=== PATIENT | male | born 1940 | race Caucasian/White ===

== ENCOUNTER → 2018-01-22 15:14 | Outpatient (CLI) | payer OTHER, SELFPAY ==
[2018-01-22 15:41] LABS: Add Manual Diff / Slide Review NO; Basophils Percent Auto 0.8 % (0-2); Eosinophils Percent Auto 2.3 % (2-4); Hematocrit 40.5 % (41-53); Hemoglobin 14.4 g/dL (13.5-17.5); Lymphocytes Percent Auto 16.8 % (25-40); Mean Corpuscular HGB Conc 35.6 % (30-36); Mean Corpuscular Hemoglobin 33.5 PG (26-34); Mean Corpuscular Volume 94.2 fL (80-100); Monocytes Percent Auto 9.3 % (3-14); Neutrophils Absolute Auto 4700 /uL (3000-5900); Neutrophils Percent Auto 70.8 % (50-75); Platelet Count 118 X10^3/uL (150-400); Red Blood Cell Count 4.31 X10^6/uL (4.5-5.9); Red Cell Distribution Width 14.3 % (11.6-14.8); White Blood Cell Count 6.6 X10^3/uL (4.5-11.0)
[2018-01-22 16:02] LABS: Alanine Aminotransferase 34 IU/L (21-72); Albumin 3.9 g/dL (3.5-5.0); Albumin Globulin Ratio 1.6 (1.0-2.8); Alkaline Phosphatase 98 U/L (38-126); Aspartate Aminotransferase 23 IU/L (17-59); BUN Creatinine Ratio 22.2 (6-22); Bilirubin Total 0.7 mg/dL (0.2-1.3); Blood Urea Nitrogen 20 mg/dL (9-20); Calcium 8.8 mg/dL (8.4-10.2); Carbon Dioxide 29 mmol/L (22-32); Chloride 106 mmol/L (98-107); Cholesterol 209 mg/dL (140-199); Estimated Glomerular Filt Rate > 60.0 mL/min (>60); Globulin 2.5 g/dL (1.7-4.1); Glucose 87 mg/dL (80-110); HDL Cholesterol 40 mg/dL (40-60); HEMOLYSIS < 15 (0-50); LDL Cholesterol Calculated 146 mg/dL (<100); Sodium 141 mmol/L (137-145); Total Protein 6.4 g/dL (6.3-8.2); Triglycerides 115 mg/dL (35-150)
[2018-01-22 16:30] LABS: Prostate Specific Antigen Scrn 0.631 ng/mL (0.1-4.0)
[2018-01-22 17:27] LABS: TSH w/ Reflex to FT4 0.91 uIU/mL (0.47-4.68)
== END ==
PROVIDERS: Family Provider Family Medicine; PCP Family Medicine; Visit Provider Family Medicine
DX: E78.5 Hyperlipidemia, unspecified (principal); G25.81 Restless legs syndrome
CPT/HCPCS: 36415; 80053; 80061; 84443; 85025; G0103

== ENCOUNTER → 2018-06-04 10:52 | Outpatient (CLI) | payer OTHER, SELFPAY ==
--- NOTE | 2018-06-04 10:53 | DI.RAD.S_ITS ---
PROCEDURE: XR LUMBAR SPINE MIN 4V INDICATIONS: left leg ridculpathy TECHNIQUE: 5 views of the lumbar spine were acquired. COMPARISON: None. FINDINGS: Bones: 5 nonrib-bearing vertebrae are present. There is normal bony alignment. No vertebral body compression fractures. No suspicious bony lesions. Only a mild degree of degenerative disc at reduction and facet degeneration can be seen. No appreciable spinal or foraminal stenosis is found. Soft tissues: Overlying bowel gas pattern is normal. No suspicious soft tissue calcifications. Oblique images: No pars defects. IMPRESSION: Minimal degenerative disc disease and facet osteoarthritis bilaterally, and a source of current symptoms is not seen. MR scanning may be warranted given its ability to accurately detect spinal and foraminal stenosis including disc herniation not identifiable by plain film. Dictated by: Baljeet Mars M.D. on 06/04/2018 at 11:37 Approved by: Baljeet Mars M.D. on 06/04/2018 at 11:38
== END ==
PROVIDERS: PCP Family Medicine; Visit Provider Family Medicine
DX: M54.42 Lumbago with sciatica, left side (principal); M54.41 Lumbago with sciatica, right side
CPT/HCPCS: 72110

== ENCOUNTER 2018-08-09 08:15 | Outpatient (RCR) | payer OTHER, SELFPAY ==
--- NOTE | 2018-07-03 17:32 | PT.OIE ---
Current Diagnoses Radiculopathy, lumbar region (07/03/18) Dorsalgia, unspecified (07/03/18) Past Medical History (Last Reviewed 06/04/18 @ 10:19 by Ruby Branch LPN) Anxiety (Chronic) Eczema (Chronic) Erectile dysfunction (Chronic) GERD (gastroesophageal reflux disease) (Chronic) Glaucoma (Chronic) Hearing loss (Chronic) Hyperlipidemia (Chronic) Psoriasis (Chronic) Tinnitus (Chronic) Vision disorder (Chronic) Past Surgical History (Last Reviewed 06/04/18 @ 10:19 by Ruby Branch LPN) Anesthesia (Resolved) History of temporal artery biopsy (Resolved) History of cataract removal with insertion of prosthetic lens (~11/2014) Provider Visit Care Team Role Provider Type Gabriel Vu MD Attending Provider Physician Family Provider Primary Care Provider Specialty: Family Practice Address: [address] [place] [address] Email: [email or web address] Physical Therapy Initial Evaluation PT-OP-A Visit Information Start: 07/03/18 16:49 Freq: Status: Active Protocol: Document 07/03/18 13:45 HH (Rec: 07/03/18 17:31 [email or web address]) Out-Patient Physical Therapy Visit Information Visit Information Visit Type Initial Evaluation Visit Note Pt is a 77 year old pleasant male with chronic LBP and radiating pain to L LE. Visit Start Time 13:45 Visit Stop Time 14:30 Total Visit Minutes 45 Visit Number 1 Number of [employer] Visits 0 Evaluation Information Evaluation Date 07/03/18 PT-OP-B Current Condition Start: 07/03/18 16:49 Freq: Status: Active Protocol: Document 07/03/18 13:45 HH (Rec: 07/03/18 17:31 [email or web address]) Current Condition History of Current Condition Onset Date Years ago Current Complaints LBP with radiating pain to L LE History of Current Condition Pt reports he has chronic LBP since many years ago and he does not knoe why. His pain radiates to his back of his L LE. Symptoms worst in the morning before he gets up from bed, but it gets better during the day. It also gets worse during prolonged sitting (especially sitting on L side ) and lying down, but relieved withing standing and movements. He also c/o his gait has been getting more uncomfortable. Prior Treatments and Tests n/a Treatment Goals Patient/Caregiver Goals To be pain free for prolonged sitting and lying down. To strengthen his B LE muscles Prior Functional Status Baseline Function- ADL's Independent Baseline Function- Mobility Independent Current Functional Impairments (Reported) Functional Limitations- ADL's No limitations reported Functional Limitations- Mobility/Gait No limitations reported Functional Limitations- Work/School No limitations reported Functional Limitations- Recreation/ No limitations reported Hobbies Functional Limitations- Other No limitations reported Personal Factors Other Personal Factors That May Effect depression, sleep apnea, Therapy/Recovery restless leg syndrome PT-OP-C Subjective Start: 07/03/18 16:49 Freq: Status: Active Protocol: Document 07/03/18 13:45 HH (Rec: 07/03/18 17:31 [email or web address]) OP-PT Subjective Patient Comments Patient Comments My LBP has been going for years and my symptoms come in and go. I want to come for physical therapy to address my symptoms and hopefully i could get better without pain again. Patient Questionnaires Oswestry Low Back Index Oswestry Score 7 Oswestry Impairment 1 to 19% Impaired (Score 1-19) OP-PT Pain Assessment Location Lower Back Pain Location Details L4-L5 Intensity 3 Scale Used Numeric (1 - 10) Description Dull Frequency Intermittent Pain Aggravating Factors Sitting Pain Alleviating Factors Standing Exercise Left Lower Leg Intensity 3 Scale Used Numeric (1 - 10) Description Dull Frequency Intermittent Pain Aggravating Factors Position Sitting Prolonged Bedrest Pain Alleviating Factors Standing Exercise PT-OP-F Manual Assessment Start: 07/03/18 16:49 Freq: Status: Active Protocol: Document 07/03/18 13:45 HH (Rec: 07/03/18 17:31 [email or web address]) Manual Assessments Soft Tissue Assessment Soft Tissue Mobility Assessment Tenderness at SI joint region, lumbar paraspinals significant tightness at L hip adductors and hamstrings Joint Mobility Assessment Joint Mobility Assessment mild hypomobility at Lumbo- sacral region PT-OP-G Mobility & Gait Start: 07/03/18 16:49 Freq: Status: Active Protocol: Document 07/03/18 13:45 HH (Rec: 07/03/18 17:31 [email or web address]) OP Gait Assessment Gait Deviations General Gait Pattern Antalgic Comments Gait Comments pt presents mild R hip drop during L LE stance phase and excessive lateral weight shift (waddling gait) PT-OP-K Range of Motion Start: 07/03/18 16:49 Freq: Status: Active Protocol: Document 07/03/18 13:45 HH (Rec: 07/03/18 17:31 [email or web address]) Lumbar Spine Range of Motion Lumbar Spine Percentage Testing Position Standing Flexion 50 Extension 80 Rotation Left 80 Rotation Right 80 ROM Limitations Soft Tissue Tightness Comments pt has significant L hip adductors and hamstrings tightness PT-OP-L Special Tests Start: 07/03/18 16:49 Freq: Status: Active Protocol: Document 07/03/18 13:45 HH (Rec: 07/03/18 17:31 [email or web address]) Special Tests Lumbar Spine Special Tests facet joint test Test Results -ve Compression Test Results -ve A-P Shearing Test Results +ve Comments slight pain with PA mob Hip Special Tests JOANN Comments Passive JOANN with reports of significant tightness sensation at L hip adductors than R Straight Leg Raise Comments Passive SLR with report of significant tightness sensation at L hamstrings than R PT-OP-M Strength Start: 07/03/18 16:49 Freq: Status: Active Protocol: Document 07/03/18 13:45 HH (Rec: 07/03/18 17:31 [email or web address]) Hip Strength Hip Manual Muscle Testing Right Flexion (L2) 5 Normal Extension (S1) 5 Normal Abduction 5 Normal Adduction 5 Normal External Rotation 5 Normal Internal Rotation 5 Normal Left Flexion (L2) 4+ Good+ Extension (S1) 4- Good- Abduction 4- Good- Adduction 4+ Good+ External Rotation 4- Good- Internal Rotation 4 Good PT-OP-Q Treatments Start: 07/03/18 16:49 Freq: Status: Active Protocol: Document 07/03/18 13:45 HH (Rec: 07/03/18 17:31 [email or web address]) Therapeutic Exercises Sitting Exercises seated hamstrings stretch Side left Reps/Minutes 4 mins Comments with ankle DF seated figure 4 Side left Reps/Minutes 4 mins Standing Exercises standing R hip hike Side left Comments facilitate L hip stability during stance phase PT-OP-T Assessment and Plan Start: 07/03/18 16:49 Freq: Status: Active Protocol: Document 07/03/18 13:45 HH (Rec: 07/03/18 17:31 HH [email or web address]) Physical Therapy Assessment Rehab Potential Rehabilitation Potential Good Evaluation Complexity Number of Personal Factors/Comorbidities 3 or More Clinical Presentation at Evaluation Stable Impairments Impairments Activity Tolerance Balance Gait Pain ROM Soft Tissue Mobility Strength Goals 3 Impairment balance Donor Services Manager Goal (LTG) to reduce R hip drop during R LE swing phase to prevent excessive stress on L medial knee joint 2 Impairment strength Short Term Goal (STG) increase overall L hip strength by 1/2 MMT grade STG Duration 2 weeks Residential Goal (LTG) Increase overall L hip strength by 1 MMT grade LTG Duration 4 weeks 1 Impairment pain Short Term Goal (STG) reduce pain by 2 points with prolonged sitting >30 mins STG Duration 2 weeks Donor Services Manager Goal (LTG) reduce pain by 4 points with prolonged sitting >30 mins LTG Duration 4 weeks Assessment Summary Assessment Pt is a very pleasant and motivated 77yo male with chronic LBP and radiating pain to his back of L LE. Pt expects receiving physical therapy could reduce his pain and strengthen his B LE. Pt presents to clinic with mild L antalgic gait with R hip drop during L LE stance phase, along with external rotated R LE. Pt notices his onset of waddling gait recently and states he is unable to walk straight like before. Pt states his pain is worst in the morning, and gets better during the day. Symptoms gets worse with prolonged sitting and lying down, but relieves during standing and movements. Pt reports he doesnt mobilize much and like to sit and ride his motocycle for road trips constantly. Upon assessment, there's noticeable difference between his L hamstrings and hip adductors flexibility, along with weakness at L hip stabilizers. pt also presents decreased lumbar segmental mobility during trunk flexion and extension. Pt will require skilled physical therapy to address aforementioned deficits to improve his overall neural flexibility for proper activation of L hip stabilizers, in order to prevent possible further complications such as knee pain and sciatica/ piriformis syndrome. Pt HEP is given including seated hamstring stretch, seated figure 4 stretch and single leg stance. Physical Therapy Plan Frequency and Duration Frequency of Treatment 2x/Week Duration of Treatment 4 weeks Plan of Care Start Date 07/03/18 Plan of Care End Date 08/09/17 Therapeutic Interventions Therapeutic Interventions Balance Training Gait Training Home Exercise Program Joint Mobilizations Manual Therapy Neuromuscular Re-education Patient/Caregiver Education Soft Tissue Mobilization Therapeutic Activities Therapeutic Exercises Modalities Cold Pack/Ice Massage Hot Packs Next Visit Focus/Plan Next Note Type Treatment Note Next Visit Plan lumbar segmental mobility cat camel, db trunk flexion hip hinge training, neural glide for sciatic nerve, adductor stretch
--- NOTE | 2018-07-03 17:35 | PT.OPPOC ---
Current Diagnoses Radiculopathy, lumbar region (08/09/18) Dorsalgia, unspecified (08/09/18) Provider Visit Care Team Role Provider Type Gabriel Vu MD Attending Provider Physician Family Provider Primary Care Provider Specialty: Family Practice Address: [address] [place] [address], [id number] Email: [email or web address] *Live* [facility] Samir Silva Male : 1940 MedRec# [id number] 07/03/18 17:32 - PT OP Initial Evaluation by Avi Cline PT Acct Num: [id number] : 1940 Patient Age: 77 Current Diagnoses Radiculopathy, lumbar region (07/03/18) Dorsalgia, unspecified (07/03/18) Past Medical History (Last Reviewed 06/04/18 @ 10:19 by Ruby Branch LPN) Anxiety (Chronic) Eczema (Chronic) Erectile dysfunction (Chronic) GERD (gastroesophageal reflux disease) (Chronic) Glaucoma (Chronic) Hearing loss (Chronic) Hyperlipidemia (Chronic) Psoriasis (Chronic) Tinnitus (Chronic) Vision disorder (Chronic) Past Surgical History (Last Reviewed 06/04/18 @ 10:19 by Ruby Branch LPN) Anesthesia (Resolved) History of temporal artery biopsy (Resolved) History of cataract removal with insertion of prosthetic lens (~11/2014) Provider Visit Care Team Role Provider Type Gabriel Vu MD Attending Provider Physician Family Provider Primary Care Provider Specialty: Family Practice Address: [address] [place] [address], [id number] Email: [email or web address] PT-OP-T Assessment and Plan Start: 07/03/18 16:49 Freq: Status: Active Protocol: Document 07/03/18 13:45 HH (Rec: 07/03/18 17:31 HH [email or web address]) Physical Therapy Assessment Rehab Potential Rehabilitation Potential Good Evaluation Complexity Number of Personal Factors/Comorbidities 3 or More Clinical Presentation at Evaluation Stable Impairments Impairments Activity Tolerance Balance Gait Pain ROM Soft Tissue Mobility Strength Goals 3 Impairment balance Correction Goal (LTG) to reduce R hip drop during R LE swing phase to prevent excessive stress on L medial knee joint 2 Impairment strength Short Term Goal (STG) increase overall L hip strength by 1/2 MMT grade STG Duration 2 weeks Correction Goal (LTG) Increase overall L hip strength by 1 MMT grade LTG Duration 4 weeks 1 Impairment pain Short Term Goal (STG) reduce pain by 2 points with prolonged sitting >30 mins STG Duration 2 weeks Weather Stripper Goal (LTG) reduce pain by 4 points with prolonged sitting >30 mins LTG Duration 4 weeks Assessment Summary Assessment Pt is a very pleasant and motivated 77yo male with chronic LBP and radiating pain to his back of L LE. Pt expects receiving physical therapy could reduce his pain and strengthen his B LE. Pt presents to clinic with mild L antalgic gait with R hip drop during L LE stance phase, along with external rotated R LE. Pt notices his onset of waddling gait recently and states he is unable to walk straight like before. Pt states his pain is worst in the morning, and gets better during the day. Symptoms gets worse with prolonged sitting and lying down, but relieves during standing and movements. Pt reports he doesnt mobilize much and like to sit and ride his motocycle for road trips constantly. Upon assessment, there's noticeable difference between his L hamstrings and hip adductors flexibility, along with weakness at L hip stabilizers. pt also presents decreased lumbar segmental mobility during trunk flexion and extension. Pt will require skilled physical therapy to address aforementioned deficits to improve his overall neural flexibility for proper activation of L hip stabilizers, in order to prevent possible further complications such as knee pain and sciatica/ piriformis syndrome. Pt HEP is given including seated hamstring stretch, seated figure 4 stretch and single leg stance. Physical Therapy Plan Frequency and Duration Frequency of Treatment 2x/Week Duration of Treatment 4 weeks Plan of Care Start Date 07/03/18 Plan of Care End Date 08/09/17 Therapeutic Interventions Therapeutic Interventions Balance Training Gait Training Home Exercise Program Joint Mobilizations Manual Therapy Neuromuscular Re-education Patient/Caregiver Education Soft Tissue Mobilization Therapeutic Activities Therapeutic Exercises Modalities Cold Pack/Ice Massage Hot Packs Next Visit Focus/Plan Next Note Type Treatment Note Next Visit Plan lumbar segmental mobility cat camel, db trunk flexion hip hinge training, neural glide for sciatic nerve, adductor stretch Initialized on 07/03/18 17:32 - END OF NOTE Plan of Care Dates Plan of Care Start Date 07/03/18 Plan of Care End Date 08/09/17 Please Sign and Return: I have reviewed this Plan of Care and certify that the skilled therapy services above are required to meet the patient?s needs. Physician Signature Date Printed Name and Credentials Clinical Instructor Signature Printed Name and Credentials
--- NOTE | 2018-07-05 13:12 | PT.OTN ---
Current Diagnoses Radiculopathy, lumbar region (07/05/18) Dorsalgia, unspecified (07/05/18) Physical Therapy Treatment Note PT-OP-A Visit Information Start: 07/03/18 16:49 Freq: Status: Active Protocol: Document 07/05/18 11:20 HH (Rec: 07/05/18 13:12 [email or web address]) Out-Patient Physical Therapy Visit Information Visit Information Visit Type Treatment Note Visit Start Time 11:20 Visit Stop Time 12:00 Total Visit Minutes 40 Visit Number 2 Number of RFID DEVELOPER Visits 0 PT-OP-B Current Condition Start: 07/03/18 16:49 Freq: Status: Active Protocol: Document 07/03/18 13:45 HH (Rec: 07/03/18 17:31 [email or web address]) Current Condition History of Current Condition Onset Date Years ago Current Complaints LBP with radiating pain to L LE History of Current Condition Pt reports he has chronic LBP since many years ago and he does not knoe why. His pain radiates to his back of his L LE. Symptoms worst in the morning before he gets up from bed, but it gets better during the day. It also gets worse during prolonged sitting (especially sitting on L side ) and lying down, but relieved withing standing and movements. He also c/o his gait has been getting more uncomfortable. Prior Treatments and Tests n/a Treatment Goals Patient/Caregiver Goals To be pain free for prolonged sitting and lying down. To strengthen his B LE muscles Prior Functional Status Baseline Function- ADL's Independent Baseline Function- Mobility Independent Current Functional Impairments (Reported) Functional Limitations- ADL's No limitations reported Functional Limitations- Mobility/Gait No limitations reported Functional Limitations- Work/School No limitations reported Functional Limitations- Recreation/ No limitations reported Hobbies Functional Limitations- Other No limitations reported Personal Factors Other Personal Factors That May Effect depression, sleep apnea, Therapy/Recovery restless leg syndrome PT-OP-C Subjective Start: 07/03/18 16:49 Freq: Status: Active Protocol: Document 07/05/18 11:20 HH (Rec: 07/05/18 13:12 [email or web address]) OP-PT Subjective Patient Comments Patient Comments My LBP is not as bad and I like the stretches from my HEP . However, my L butt is very sore today after I did 40 mins single leg stance exercise. PT-OP-F Manual Assessment Start: 07/03/18 16:49 Freq: Status: Active Protocol: Document 07/03/18 13:45 HH (Rec: 07/03/18 17:31 [email or web address]) Manual Assessments Soft Tissue Assessment Soft Tissue Mobility Assessment Tenderness at SI joint region, lumbar paraspinals significant tightness at L hip adductors and hamstrings Joint Mobility Assessment Joint Mobility Assessment mild hypomobility at Lumbo- sacral region PT-OP-G Mobility & Gait Start: 07/03/18 16:49 Freq: Status: Active Protocol: Document 07/03/18 13:45 HH (Rec: 07/03/18 17:31 [email or web address]) OP Gait Assessment Gait Deviations General Gait Pattern Antalgic Comments Gait Comments pt presents mild R hip drop during L LE stance phase and excessive lateral weight shift (waddling gait) PT-OP-K Range of Motion Start: 07/03/18 16:49 Freq: Status: Active Protocol: Document 07/03/18 13:45 HH (Rec: 07/03/18 17:31 [email or web address]) Lumbar Spine Range of Motion Lumbar Spine Percentage Testing Position Standing Flexion 50 Extension 80 Rotation Left 80 Rotation Right 80 ROM Limitations Soft Tissue Tightness Comments pt has significant L hip adductors and hamstrings tightness PT-OP-L Special Tests Start: 07/03/18 16:49 Freq: Status: Active Protocol: Document 07/03/18 13:45 HH (Rec: 07/03/18 17:31 [email or web address]) Special Tests Lumbar Spine Special Tests facet joint test Test Results -ve Compression Test Results -ve A-P Shearing Test Results +ve Comments slight pain with PA mob Hip Special Tests JOANN Comments Passive JOANN with reports of significant tightness sensation at L hip adductors than R Straight Leg Raise Comments Passive SLR with report of significant tightness sensation at L hamstrings than R PT-OP-M Strength Start: 07/03/18 16:49 Freq: Status: Active Protocol: Document 07/03/18 13:45 HH (Rec: 07/03/18 17:31 [email or web address]) Hip Strength Hip Manual Muscle Testing Right Flexion (L2) 5 Normal Extension (S1) 5 Normal Abduction 5 Normal Adduction 5 Normal External Rotation 5 Normal Internal Rotation 5 Normal Left Flexion (L2) 4+ Good+ Extension (S1) 4- Good- Abduction 4- Good- Adduction 4+ Good+ External Rotation 4- Good- Internal Rotation 4 Good PT-OP-Q Treatments Start: 07/03/18 16:49 Freq: Status: Active Protocol: Document 07/05/18 11:20 HH (Rec: 07/05/18 13:12 [email or web address]) Therapeutic Exercises Standing Exercises standing L HS stretch Standing Exercise Name with L DF Reps/Minutes 10 x 2 standing R hip hike Side left Reps/Minutes 4 mins Other Exercises child pose Reps/Minutes 5 mins Comments cues on lumbar flexion cat camel Reps/Minutes 5 mins Comments cues on lumbar flexion Manual Therapy Treatment Soft Tissue Mobilization IASTM Body Location L lumbar paraspinals Mobilization Type Cross-Friction Intensity/Depth Moderate Body Position Prone PT-OP-T Assessment and Plan Start: 07/03/18 16:49 Freq: Status: Active Protocol: Document 07/05/18 11:20 HH (Rec: 07/05/18 13:12 [email or web address]) Physical Therapy Assessment Assessment Summary Assessment Pt presents to clinic with reduced L antalgic gait along with slight improved lumbar segmental movements. Pt reports he did 40 mins R hip hike exercise yesterday and he felt very sore at his L butt. Noticeable increased tension at his L lumbar paraspinal today. He does feel better after IASTM. Pt also demonstrates lack of motor control of pelvic tilt movements and requires cues to facilitate segmental mobility . Pt education is also given on exercise progression to avoid exhaustion of gluteal muscles. Physical Therapy Plan Next Visit Focus/Plan Next Note Type Treatment Note Next Visit Plan Cont focus on lumbar segmental movement with flexion and extension, hip hinge pattern, increase L HS flexibility.
--- NOTE | 2018-07-23 18:05 | PT.OTN ---
Current Diagnoses Radiculopathy, lumbar region (07/23/18) Dorsalgia, unspecified (07/23/18) Physical Therapy Treatment Note PT-OP-A Visit Information Start: 07/03/18 16:49 Freq: Status: Active Protocol: Document 07/23/18 16:45 HH (Rec: 07/23/18 18:05 [email or web address]) Out-Patient Physical Therapy Visit Information Visit Information Visit Type Treatment Note Visit Note Pt has not been seen since due to vacation. 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 His pain radiates to his back of his L LE. Symptoms worst in the morning before he gets up from bed, but it gets better during the day. It also gets worse during prolonged sitting (especially sitting on L side ) and lying down, but relieved withing standing and movements. He also c/o his gait has been getting more uncomfortable. Prior Treatments and Tests n/a Treatment Goals Patient/Caregiver Goals To be pain free for prolonged sitting and lying down. To strengthen his B LE muscles Prior Functional Status Baseline Function- ADL's Independent Baseline Function- Mobility Independent Current Functional Impairments (Reported) Functional Limitations- ADL's No limitations reported Functional Limitations- Mobility/Gait No limitations reported Functional Limitations- Work/School No limitations reported Functional Limitations- Recreation/ No limitations reported Hobbies Functional Limitations- Other No limitations reported Personal Factors Other Personal Factors That May Effect depression, sleep apnea, Therapy/Recovery restless leg syndrome PT-OP-C Subjective Start: 07/03/18 16:49 Freq: Status: Active Protocol: Document 07/23/18 16:45 HH (Rec: 07/23/18 18:05 [email or web address]) OP-PT Subjective Patient Comments Patient Comments My back has been doing pretty good so far and i havent done much with my home exercises. I still have back pain 3/10 when i got up in the morning but it went away immediately after. Laying down and sitting on my left side tends to aggravate. Patient Reported Progress Improving PT-OP-F Manual Assessment Start: 07/03/18 16:49 Freq: Status: Active Protocol: Document 07/03/18 13:45 HH (Rec: 07/03/18 17:31 [email or web address]) Manual Assessments Soft Tissue Assessment Soft Tissue Mobility Assessment Tenderness at SI joint region, lumbar paraspinals significant tightness at L hip adductors and hamstrings Joint Mobility Assessment Joint Mobility Assessment mild hypomobility at Lumbo- sacral region PT-OP-G Mobility & Gait Start: 07/03/18 16:49 Freq: Status: Active Protocol: Document 07/03/18 13:45 HH (Rec: 07/03/18 17:31 [email or web address]) OP Gait Assessment Gait Deviations General Gait Pattern Antalgic Comments Gait Comments pt presents mild R hip drop during L LE stance phase and excessive lateral weight shift (waddling gait) PT-OP-K Range of Motion Start: 07/03/18 16:49 Freq: Status: Active Protocol: Document 07/03/18 13:45 HH (Rec: 07/03/18 17:31 [email or web address]) Lumbar Spine Range of Motion Lumbar Spine Percentage Testing Position Standing Flexion 50 Extension 80 Rotation Left 80 Rotation Right 80 ROM Limitations Soft Tissue Tightness Comments pt has significant L hip adductors and hamstrings tightness PT-OP-L Special Tests Start: 07/03/18 16:49 Freq: Status: Active Protocol: Document 07/03/18 13:45 HH (Rec: 07/03/18 17:31 [email or web address]) Special Tests Lumbar Spine Special Tests facet joint test Test Results -ve Compression Test Results -ve A-P Shearing Test Results +ve Comments slight pain with PA mob Hip Special Tests JOANN Comments Passive JOANN with reports of significant tightness sensation at L hip adductors than R Straight Leg Raise Comments Passive SLR with report of significant tightness sensation at L hamstrings than R PT-OP-M Strength Start: 07/03/18 16:49 Freq: Status: Active Protocol: Document 07/03/18 13:45 HH (Rec: 07/03/18 17:31 [email or web address]) Hip Strength Hip Manual Muscle Testing Right Flexion (L2) 5 Normal Extension (S1) 5 Normal Abduction 5 Normal Adduction 5 Normal External Rotation 5 Normal Internal Rotation 5 Normal Left Flexion (L2) 4+ Good+ Extension (S1) 4- Good- Abduction 4- Good- Adduction 4+ Good+ External Rotation 4- Good- Internal Rotation 4 Good PT-OP-Q Treatments Start: 07/03/18 16:49 Freq: Status: Active Protocol: Document 07/23/18 16:45 (Rec: 07/23/18 18:05 [email or web address]) Therapeutic Exercises Sitting Exercises long sit stretch Reps/Minutes 6 secs hold x 3 Comments with UE support and cervical flexion and extension pelvic tilt on therapy ball Reps/Minutes 10 x 3 Comments with UE support and cervical flexion and extension seated figure 4 Side left Reps/Minutes 4 mins Standing Exercises long stride with R LE Reps/Minutes 5 mins Comments R LE step over to facilitate increase R stride length and L hip abd stabilt standing trunk flexion Reps/Minutes 10 x2 Comments hannah touch with posterior pelvic tilt standing pelvic tilt Reps/Minutes 15 x 2 Comments with UE support to avoid upper spine movements Manual Therapy Treatment Soft Tissue Mobilization 2 Body Location gluteal ext and piriformis active release Mobilization Type Sustained Pressure Trigger Point Release Intensity/Depth Moderate Body Position Prone Comments with L hip ER and IR IASTM Body Location L lumbar paraspinals Mobilization Type Cross-Friction Intensity/Depth Moderate Body Position Prone PT-OP-T Assessment and Plan Start: 07/03/18 16:49 Freq: Status: Active Protocol: Document 07/23/18 16:45 (Rec: 07/23/18 18:05 [email or web address]) Physical Therapy Assessment Assessment Summary Assessment Pt presents improved lumbar segmental control after seated pelvic til and standing pelvic tilt with UE support to avoid thoracic movements. Pt demonstrates improved posterior pelvic tilt during standing trunk flexion. Pt is able to touch his shins for the first time since IE. Recommended pt to do pelvic tilt before getting OOB in the morning to reduce trunk stiffness. Pt also requires max cues to facilitate arm swing and longer R LE stride length during gait training. Physical Therapy Plan Next Visit Focus/Plan Next Note Type Treatment Note Next Visit Plan reassess lumbar segmental movement, start low back strengthening with iso hold with weight as tolerated L hip stabilization and strengthening. NM joanna on increasing R stride length
--- NOTE | 2018-07-30 12:28 | PT.OPPN ---
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 His pain radiates to his back of his L LE. Symptoms worst in the morning before he gets up from bed, but it gets better during the day. It also gets worse during prolonged sitting (especially sitting on L side ) and lying down, but relieved withing standing and movements. He also c/o his gait has been getting more uncomfortable. Prior Treatments and Tests n/a Treatment Goals Patient/Caregiver Goals To be pain free for prolonged sitting and lying down. To strengthen his B LE muscles Prior Functional Status Baseline Function- ADL's Independent Baseline Function- Mobility Independent Current Functional Impairments (Reported) Functional Limitations- ADL's No limitations reported Functional Limitations- Mobility/Gait No limitations reported Functional Limitations- Work/School No limitations reported Functional Limitations- Recreation/ No limitations reported Hobbies Functional Limitations- Other No limitations reported Personal Factors Other Personal Factors That May Effect depression, sleep apnea, Therapy/Recovery restless leg syndrome PT-OP-C Subjective Start: 07/03/18 16:49 Freq: Status: Active Protocol: Document 07/30/18 09:45 HH (Rec: 07/30/18 12:28 HH [email or web address]) OP-PT Subjective Patient Comments Patient Comments My back has been doing pretty good. I dont have any leg cramps lately and my pain has gone down 0-1/10 when i got up in the morning. However, i have shooting pain down to my left leg few days but it went away within an hour. Patient Reported Progress Improving PT-OP-F Manual Assessment Start: 07/03/18 16:49 Freq: Status: Active Protocol: Document 07/03/18 13:45 HH (Rec: 07/03/18 17:31 [email or web address]) Manual Assessments Soft Tissue Assessment Soft Tissue Mobility Assessment Tenderness at SI joint region, lumbar paraspinals significant tightness at L hip adductors and hamstrings Joint Mobility Assessment Joint Mobility Assessment mild hypomobility at Lumbo- sacral region PT-OP-G Mobility & Gait Start: 07/03/18 16:49 Freq: Status: Active Protocol: Document 07/03/18 13:45 HH (Rec: 07/03/18 17:31 [email or web address]) OP Gait Assessment Gait Deviations General Gait Pattern Antalgic Comments Gait Comments pt presents mild R hip drop during L LE stance phase and excessive lateral weight shift (waddling gait) PT-OP-K Range of Motion Start: 07/03/18 16:49 Freq: Status: Active Protocol: Document 07/03/18 13:45 HH (Rec: 07/03/18 17:31 [email or web address]) Lumbar Spine Range of Motion Lumbar Spine Percentage Testing Position Standing Flexion 50 Extension 80 Rotation Left 80 Rotation Right 80 ROM Limitations Soft Tissue Tightness Comments pt has significant L hip adductors and hamstrings tightness PT-OP-L Special Tests Start: 07/03/18 16:49 Freq: Status: Active Protocol: Document 07/03/18 13:45 HH (Rec: 07/03/18 17:31 [email or web address]) Special Tests Lumbar Spine Special Tests facet joint test Test Results -ve Compression Test Results -ve A-P Shearing Test Results +ve Comments slight pain with PA mob Hip Special Tests JOANN Comments Passive JOANN with reports of significant tightness sensation at L hip adductors than R Straight Leg Raise Comments Passive SLR with report of significant tightness sensation at L hamstrings than R PT-OP-M Strength Start: 07/03/18 16:49 Freq: Status: Active Protocol: Document 07/03/18 13:45 HH (Rec: 07/03/18 17:31 [email or web address]) Hip Strength Hip Manual Muscle Testing Right Flexion (L2) 5 Normal Extension (S1) 5 Normal Abduction 5 Normal Adduction 5 Normal External Rotation 5 Normal Internal Rotation 5 Normal Left Flexion (L2) 4+ Good+ Extension (S1) 4- Good- Abduction 4- Good- Adduction 4+ Good+ External Rotation 4- Good- Internal Rotation 4 Good PT-OP-T Assessment and Plan Start: 07/03/18 16:49 Freq: Status: Active Protocol: Document 07/30/18 09:45 HH (Rec: 07/30/18 12:28 HH [email or web address]) Physical Therapy Assessment Goals 4 Impairment compliance to HEP Director Telemetry Goal (LTG) comply to HEP at least 3 times / week and able to perform HEP correctly independently LTG Duration 8 weeks 3 Impairment balance Short Term Goal (STG) to reduce R hip drop during R LE swing phase to prevent excessive stress on L medial knee joint STG Duration 4 weeks Correction Goal (LTG) amb without R hip drop LTG Duration 8 weeks 2 Impairment strength Short Term Goal (STG) increase overall L hip strength by 1/2 MMT grade STG Duration 4 weeks 1 Impairment pain Short Term Goal (STG) pain free before getting OOB in the morning. STG Duration 4 weeks Correction Goal (LTG) pain free during lifting objects from the floor LTG Duration 8 weeks Progress Towards Goals Progress Towards Goals Progressing Toward Goals Slow Progress due to Noncompliance Progress Comments Pt reports he doesnt do his HEP very often. But he does report his pain and symptoms are getting better since IE. Assessment Summary Assessment Pt presents improvement with segmental lumbar control during flexion and extension. pt is now able to perform standing pelvic tilt without cues. He is also able to touch his b shins. PT education on segmental lumbar flexion and hip hinge pattern. pt requires max cues for hip hinge who tends to lift objects from the floor with knee extended. pt also cont significant limitations with thoracic extension. Pt progress overall fairly well due to his poor compliance for HEP. But he did report his pain has been decreased especially in the morning. Physical Therapy Plan Next Visit Focus/Plan Next Note Type Treatment Note Next Visit Plan reassess lumbar segmental movement, hip hinge pattern. Thoracic extension rom ex, low back strengthening with iso hold or concentric with weight as tolerated L hip stabilization and strengthening. NM joanna on increasing R stride length
--- NOTE | 2018-07-30 12:32 | PT.OTN ---
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 His pain radiates to his back of his L LE. Symptoms worst in the morning before he gets up from bed, but it gets better during the day. It also gets worse during prolonged sitting (especially sitting on L side ) and lying down, but relieved withing standing and movements. He also c/o his gait has been getting more uncomfortable. Prior Treatments and Tests n/a Treatment Goals Patient/Caregiver Goals To be pain free for prolonged sitting and lying down. To strengthen his B LE muscles Prior Functional Status Baseline Function- ADL's Independent Baseline Function- Mobility Independent Current Functional Impairments (Reported) Functional Limitations- ADL's No limitations reported Functional Limitations- Mobility/Gait No limitations reported Functional Limitations- Work/School No limitations reported Functional Limitations- Recreation/ No limitations reported Hobbies Functional Limitations- Other No limitations reported Personal Factors Other Personal Factors That May Effect depression, sleep apnea, Therapy/Recovery restless leg syndrome PT-OP-C Subjective Start: 07/03/18 16:49 Freq: Status: Active Protocol: Document 07/30/18 09:45 HH (Rec: 07/30/18 12:28 HH [email or web address]) OP-PT Subjective Patient Comments Patient Comments My back has been doing pretty good. I dont have any leg cramps lately and my pain has gone down 0-1/10 when i got up in the morning. However, i have shooting pain down to my left leg few days but it went away within an hour. Patient Reported Progress Improving PT-OP-F Manual Assessment Start: 07/03/18 16:49 Freq: Status: Active Protocol: Document 07/03/18 13:45 HH (Rec: 07/03/18 17:31 [email or web address]) Manual Assessments Soft Tissue Assessment Soft Tissue Mobility Assessment Tenderness at SI joint region, lumbar paraspinals significant tightness at L hip adductors and hamstrings Joint Mobility Assessment Joint Mobility Assessment mild hypomobility at Lumbo- sacral region PT-OP-G Mobility & Gait Start: 07/03/18 16:49 Freq: Status: Active Protocol: Document 07/03/18 13:45 HH (Rec: 07/03/18 17:31 [email or web address]) OP Gait Assessment Gait Deviations General Gait Pattern Antalgic Comments Gait Comments pt presents mild R hip drop during L LE stance phase and excessive lateral weight shift (waddling gait) PT-OP-K Range of Motion Start: 07/03/18 16:49 Freq: Status: Active Protocol: Document 07/03/18 13:45 HH (Rec: 07/03/18 17:31 [email or web address]) Lumbar Spine Range of Motion Lumbar Spine Percentage Testing Position Standing Flexion 50 Extension 80 Rotation Left 80 Rotation Right 80 ROM Limitations Soft Tissue Tightness Comments pt has significant L hip adductors and hamstrings tightness PT-OP-L Special Tests Start: 07/03/18 16:49 Freq: Status: Active Protocol: Document 07/03/18 13:45 HH (Rec: 07/03/18 17:31 [email or web address]) Special Tests Lumbar Spine Special Tests facet joint test Test Results -ve Compression Test Results -ve A-P Shearing Test Results +ve Comments slight pain with PA mob Hip Special Tests JOANN Comments Passive JOANN with reports of significant tightness sensation at L hip adductors than R Straight Leg Raise Comments Passive SLR with report of significant tightness sensation at L hamstrings than R PT-OP-M Strength Start: 07/03/18 16:49 Freq: Status: Active Protocol: Document 07/03/18 13:45 HH (Rec: 07/03/18 17:31 [email or web address]) Hip Strength Hip Manual Muscle Testing Right Flexion (L2) 5 Normal Extension (S1) 5 Normal Abduction 5 Normal Adduction 5 Normal External Rotation 5 Normal Internal Rotation 5 Normal Left Flexion (L2) 4+ Good+ Extension (S1) 4- Good- Abduction 4- Good- Adduction 4+ Good+ External Rotation 4- Good- Internal Rotation 4 Good PT-OP-Q Treatments Start: 07/03/18 16:49 Freq: Status: Active Protocol: Document 07/30/18 09:45 (Rec: 07/30/18 12:28 [email or web address]) Therapeutic Exercises Supine Exercises thoracic extension against foam roller Side bilateral Equipment Used foam roller Reps/Minutes 10 x 2 Standing Exercises standing hip hinge Reps/Minutes 8 x 2 Comments buttock against wall standing trunk flexion Equipment Used 10 lbs weight Reps/Minutes 8 x2 Comments hannah touch with posterior pelvic tilt standing pelvic tilt Reps/Minutes 15 x 2 Comments with UE support to avoid upper spine movements standing L HS stretch Standing Exercise Name with L DF Reps/Minutes 10 x 2 Manual Therapy Treatment Soft Tissue Mobilization Lumbar paraspinals Mobilization Type Cross-Friction Sustained Pressure Trigger Point Release Intensity/Depth Moderate Body Position Prone 2 Body Location gluteal ext and piriformis active release Mobilization Type Sustained Pressure Trigger Point Release Intensity/Depth Moderate Body Position Prone Comments with L hip ER and IR PT-OP-T Assessment and Plan Start: 07/03/18 16:49 Freq: Status: Active Protocol: Document 07/30/18 09:45 (Rec: 07/30/18 12:28 [email or web address]) Physical Therapy Assessment Goals 4 Impairment compliance to HEP Check Airman Goal (LTG) comply to HEP at least 3 times / week and able to perform HEP correctly independently LTG Duration 8 weeks 3 Impairment balance Short Term Goal (STG) to reduce R hip drop during R LE swing phase to prevent excessive stress on L medial knee joint STG Duration 4 weeks Retirement Goal (LTG) amb without R hip drop LTG Duration 8 weeks 2 Impairment strength Short Term Goal (STG) increase overall L hip strength by 1/2 MMT grade STG Duration 4 weeks 1 Impairment pain Short Term Goal (STG) pain free before getting OOB in the morning. STG Duration 4 weeks Check Airman Goal (LTG) pain free during lifting objects from the floor LTG Duration 8 weeks Progress Towards Goals Progress Towards Goals Progressing Toward Goals Slow Progress due to Noncompliance Progress Comments Pt reports he doesnt do his HEP very often. But he does report his pain and symptoms are getting better since IE. Assessment Summary Assessment Pt presents improvement with segmental lumbar control during flexion and extension. pt is now able to perform standing pelvic tilt without cues. He is also able to touch his b shins. PT education on segmental lumbar flexion and hip hinge pattern. pt requires max cues for hip hinge who tends to lift objects from the floor with knee extended. pt also cont significant limitations with thoracic extension. Pt progress overall fairly well due to his poor compliance for HEP. But he did report his pain has been decreased especially in the morning. Physical Therapy Plan Next Visit Focus/Plan Next Note Type Treatment Note Next Visit Plan reassess lumbar segmental movement, hip hinge pattern. Thoracic extension rom ex, low back strengthening with iso hold or concentric with weight as tolerated L hip stabilization and strengthening. NM joanna on increasing R stride length
--- NOTE | 2018-08-09 10:06 | PT.OTN ---
Current Diagnoses Radiculopathy, lumbar region (08/09/18) Dorsalgia, unspecified (08/09/18) Physical Therapy Treatment Note PT-OP-A Visit Information Start: 07/03/18 16:49 Freq: Status: Active Protocol: Document 08/09/18 09:53 SA (Rec: 08/09/18 10:06 SA [email or web address]) Out-Patient Physical Therapy Visit Information Visit Information Visit Type Progress Note Visit Start Time 08:15 Visit Stop Time 09:00 Total Visit Minutes 45 Visit Number 5 Number of LEATHER CASE FINISHER Visits 1 PT-OP-B Current Condition Start: 07/03/18 16:49 Freq: Status: Active Protocol: Document 07/03/18 13:45 HH (Rec: 07/03/18 17:31 HH [email or web address]) Current Condition History of Current Condition Onset Date Years ago Current Complaints LBP with radiating pain to L LE History of Current Condition Pt reports he has chronic LBP since many years ago and he does not knoe why. His pain radiates to his back of his L LE. Symptoms worst in the morning before he gets up from bed, but it gets better during the day. It also gets worse during prolonged sitting (especially sitting on L side ) and lying down, but relieved withing standing and movements. He also c/o his gait has been getting more uncomfortable. Prior Treatments and Tests n/a Treatment Goals Patient/Caregiver Goals To be pain free for prolonged sitting and lying down. To strengthen his B LE muscles Prior Functional Status Baseline Function- ADL's Independent Baseline Function- Mobility Independent Current Functional Impairments (Reported) Functional Limitations- ADL's No limitations reported Functional Limitations- Mobility/Gait No limitations reported Functional Limitations- Work/School No limitations reported Functional Limitations- Recreation/ No limitations reported Hobbies Functional Limitations- Other No limitations reported Personal Factors Other Personal Factors That May Effect depression, sleep apnea, Therapy/Recovery restless leg syndrome PT-OP-C Subjective Start: 07/03/18 16:49 Freq: Status: Active Protocol: Document 08/09/18 09:53 SA (Rec: 08/09/18 10:06 SA [email or web address]) OP-PT Subjective Patient Comments Patient Comments Pt reports his back is feeling much better, leg cramps happen about once every 3 days which is significantly less. PT-OP-F Manual Assessment Start: 07/03/18 16:49 Freq: Status: Active Protocol: Document 07/03/18 13:45 HH (Rec: 07/03/18 17:31 [email or web address]) Manual Assessments Soft Tissue Assessment Soft Tissue Mobility Assessment Tenderness at SI joint region, lumbar paraspinals significant tightness at L hip adductors and hamstrings Joint Mobility Assessment Joint Mobility Assessment mild hypomobility at Lumbo- sacral region PT-OP-G Mobility & Gait Start: 07/03/18 16:49 Freq: Status: Active Protocol: Document 07/03/18 13:45 HH (Rec: 07/03/18 17:31 [email or web address]) OP Gait Assessment Gait Deviations General Gait Pattern Antalgic Comments Gait Comments pt presents mild R hip drop during L LE stance phase and excessive lateral weight shift (waddling gait) PT-OP-K Range of Motion Start: 07/03/18 16:49 Freq: Status: Active Protocol: Document 07/03/18 13:45 HH (Rec: 07/03/18 17:31 [email or web address]) Lumbar Spine Range of Motion Lumbar Spine Percentage Testing Position Standing Flexion 50 Extension 80 Rotation Left 80 Rotation Right 80 ROM Limitations Soft Tissue Tightness Comments pt has significant L hip adductors and hamstrings tightness PT-OP-L Special Tests Start: 07/03/18 16:49 Freq: Status: Active Protocol: Document 07/03/18 13:45 HH (Rec: 07/03/18 17:31 [email or web address]) Special Tests Lumbar Spine Special Tests facet joint test Test Results -ve Compression Test Results -ve A-P Shearing Test Results +ve Comments slight pain with PA mob Hip Special Tests JOANN Comments Passive JOANN with reports of significant tightness sensation at L hip adductors than R Straight Leg Raise Comments Passive SLR with report of significant tightness sensation at L hamstrings than R PT-OP-M Strength Start: 07/03/18 16:49 Freq: Status: Active Protocol: Document 07/03/18 13:45 HH (Rec: 07/03/18 17:31 [email or web address]) Hip Strength Hip Manual Muscle Testing Right Flexion (L2) 5 Normal Extension (S1) 5 Normal Abduction 5 Normal Adduction 5 Normal External Rotation 5 Normal Internal Rotation 5 Normal Left Flexion (L2) 4+ Good+ Extension (S1) 4- Good- Abduction 4- Good- Adduction 4+ Good+ External Rotation 4- Good- Internal Rotation 4 Good PT-OP-Q Treatments Start: 07/03/18 16:49 Freq: Status: Active Protocol: Document 08/09/18 09:53 SA (Rec: 08/09/18 10:06 [email or web address]) Cardio Equipment Recumbent Stepper (Sci-Fit) Duration (Minutes) 5 Resistance 2.5 Therapeutic Exercises Supine Exercises thoracic extension against foam roller Side bilateral Equipment Used foam roller Reps/Minutes Used wand with 4# for [place] Sitting Exercises pelvic tilt on therapy ball Reps/Minutes 10 x 3 Comments progressed to marches seated figure 4 Side left Reps/Minutes 3 min Standing Exercises Standing wall postural stetch Reps/Minutes 30 x 3 standing hip hinge Reps/Minutes 2 x 10 Comments buttock against wall standing pelvic tilt Reps/Minutes 15 x 2 Comments with UE support to avoid upper spine movements standing L HS stretch Standing Exercise Name with L DF Reps/Minutes 10 x 2 Comments at stairs Manual Therapy Treatment Soft Tissue Mobilization IASTM Body Location L lumbar paraspinals Mobilization Type Cross-Friction Intensity/Depth Moderate Body Position Sidelying PT-OP-T Assessment and Plan Start: 07/03/18 16:49 Freq: Status: Active Protocol: Document 08/09/18 09:53 (Rec: 08/09/18 10:06 [email or web address]) Physical Therapy Assessment Assessment Summary Assessment Postural correction/education provided. Pt hopes to become more aware of posture. Admits that he is not very consistent with HEP. Tolerated ther ex well. Physical Therapy Plan Next Visit Focus/Plan Next Note Type Treatment Note Next Visit Plan Continue to progress lumbar stab program as well as increased postural awareness with self correction.
--- NOTE | 2018-12-18 15:37 | PT.OPDS ---
Current Diagnoses Radiculopathy, lumbar region (08/09/18) Dorsalgia, unspecified (08/09/18) Provider Visit Care Team Role Provider Type Gabriel Vu MD Attending Provider Physician Family Provider Primary Care Provider Specialty: Family Practice Address: [address] [place] [address], [facility] Email: [email or web address] Visit Number Visit Number 5 Discharge Summary PT-OP-B Current Condition Start: 07/03/18 16:49 Freq: Status: Active Protocol: Document 07/03/18 13:45 HH (Rec: 07/03/18 17:31 HH [email or web address]) Current Condition History of Current Condition Onset Date Years ago Current Complaints LBP with radiating pain to L LE History of Current Condition Pt reports he has chronic LBP since many years ago and he does not knoe why. His pain radiates to his back of his L LE. Symptoms worst in the morning before he gets up from bed, but it gets better during the day. It also gets worse during prolonged sitting (especially sitting on L side ) and lying down, but relieved withing standing and movements. He also c/o his gait has been getting more uncomfortable. Prior Treatments and Tests n/a Treatment Goals Patient/Caregiver Goals To be pain free for prolonged sitting and lying down. To strengthen his B LE muscles Prior Functional Status Baseline Function- ADL's Independent Baseline Function- Mobility Independent Current Functional Impairments (Reported) Functional Limitations- ADL's No limitations reported Functional Limitations- Mobility/Gait No limitations reported Functional Limitations- Work/School No limitations reported Functional Limitations- Recreation/ No limitations reported Hobbies Functional Limitations- Other No limitations reported Personal Factors Other Personal Factors That May Effect depression, sleep apnea, Therapy/Recovery restless leg syndrome PT-OP-C Subjective Start: 07/03/18 16:49 Freq: Status: Active Protocol: Document 08/09/18 09:53 SA (Rec: 08/09/18 10:06 SA [email or web address]) OP-PT Subjective Patient Comments Patient Comments Pt reports his back is feeling much better, leg cramps happen about once every 3 days which is significantly less. PT-OP-F Manual Assessment Start: 07/03/18 16:49 Freq: Status: Active Protocol: Document 07/03/18 13:45 HH (Rec: 07/03/18 17:31 [email or web address]) Manual Assessments Soft Tissue Assessment Soft Tissue Mobility Assessment Tenderness at SI joint region, lumbar paraspinals significant tightness at L hip adductors and hamstrings Joint Mobility Assessment Joint Mobility Assessment mild hypomobility at Lumbo- sacral region PT-OP-G Mobility & Gait Start: 07/03/18 16:49 Freq: Status: Active Protocol: Document 07/03/18 13:45 HH (Rec: 07/03/18 17:31 [email or web address]) OP Gait Assessment Gait Deviations General Gait Pattern Antalgic Comments Gait Comments pt presents mild R hip drop during L LE stance phase and excessive lateral weight shift (waddling gait) PT-OP-K Range of Motion Start: 07/03/18 16:49 Freq: Status: Active Protocol: Document 07/03/18 13:45 HH (Rec: 07/03/18 17:31 [email or web address]) Lumbar Spine Range of Motion Lumbar Spine Percentage Testing Position Standing Flexion 50 Extension 80 Rotation Left 80 Rotation Right 80 ROM Limitations Soft Tissue Tightness Comments pt has significant L hip adductors and hamstrings tightness PT-OP-L Special Tests Start: 07/03/18 16:49 Freq: Status: Active Protocol: Document 07/03/18 13:45 HH (Rec: 07/03/18 17:31 [email or web address]) Special Tests Lumbar Spine Special Tests facet joint test Test Results -ve Compression Test Results -ve A-P Shearing Test Results +ve Comments slight pain with PA mob Hip Special Tests JOANN Comments Passive JOANN with reports of significant tightness sensation at L hip adductors than R Straight Leg Raise Comments Passive SLR with report of significant tightness sensation at L hamstrings than R PT-OP-M Strength Start: 07/03/18 16:49 Freq: Status: Active Protocol: Document 07/03/18 13:45 HH (Rec: 07/03/18 17:31 [email or web address]) Hip Strength Hip Manual Muscle Testing Right Flexion (L2) 5 Normal Extension (S1) 5 Normal Abduction 5 Normal Adduction 5 Normal External Rotation 5 Normal Internal Rotation 5 Normal Left Flexion (L2) 4+ Good+ Extension (S1) 4- Good- Abduction 4- Good- Adduction 4+ Good+ External Rotation 4- Good- Internal Rotation 4 Good PT-OP-T Assessment and Plan Start: 07/03/18 16:49 Freq: Status: Active Protocol: Document 12/18/18 15:36 (Rec: 12/18/18 15:37 [email or web address]) Physical Therapy Plan Discharge Physical Therapy Discharge Reasons Patient Request Discharge Comments Phone called was made 2 months ago and pt reports he is doing much better without back pain. Requested to be D/C from PT.
== END 2019-01-10 11:21 | disposition home or self-care (01) ==
LOC: PHYS 08:15
PROVIDERS: Family Provider Family Medicine; PCP Family Medicine; Visit Provider Family Medicine
DX: M54.16 Radiculopathy, lumbar region (principal); M54.9 Dorsalgia, unspecified
CPT/HCPCS: 97110; 97112; 97140; 97161

== ENCOUNTER → 2019-04-29 08:29 | Outpatient (CLI) | payer OTHER, SELFPAY ==
[2019-04-29 08:57] LABS: Add Manual Diff / Slide Review NO; Basophils Absolute Auto 0 /uL (0-100); Basophils Percent Auto 0.6 % (0-2); Eosinophils Absolute Auto 100 /uL (0-450); Eosinophils Percent Auto 2.4 % (2-4); Hematocrit 42.5 % (41-53); Hemoglobin 14.9 g/dL (13.5-17.5); Lymphocytes Absolute Auto 800 /uL (1100-4500); Lymphocytes Percent Auto 13.6 % (25-40); Mean Corpuscular HGB Conc 35.1 % (30-36); Mean Corpuscular Hemoglobin 33.3 PG (26-34); Mean Corpuscular Volume 94.9 fL (80-100); Monocytes Absolute Auto 500 /uL (0-900); Monocytes Percent Auto 9.1 % (3-14); Neutrophils Absolute Auto 4100 /uL (1500-7000); Neutrophils Percent Auto 74.3 % (50-75); Platelet Count 113 X10^3/uL (150-400); Red Blood Cell Count 4.47 X10^6/uL (4.5-5.9); White Blood Cell Count 5.6 X10^3/uL (4.5-11.0)
[2019-04-29 09:38] LABS: Alanine Aminotransferase 33 IU/L (21-72); Albumin Globulin Ratio 1.7 (1.0-2.8); Alkaline Phosphatase 81 U/L (38-126); Aspartate Aminotransferase 24 IU/L (17-59); BUN Creatinine Ratio 22.5 (6-22); Bilirubin Total 0.8 mg/dL (0.2-1.3); Blood Urea Nitrogen 18 mg/dL (9-20); Carbon Dioxide 28 mmol/L (22-32); Chloride 107 mmol/L (98-107); Cholesterol 109 mg/dL (140-199); Estimated Glomerular Filt Rate > 60.0 mL/min (>60); Globulin 2.3 g/dL (1.7-4.1); Glucose 91 mg/dL (80-110); HDL Cholesterol 37 mg/dL (40-60); HEMOLYSIS < 15 (0-50); LDL Cholesterol Calculated 56 mg/dL (<100); Potassium 4.4 mmol/L (3.4-5.1); Sodium 142 mmol/L (137-145); Total Protein 6.3 g/dL (6.3-8.2); Triglycerides 80 mg/dL (35-150)
[2019-04-29 10:07] LABS: Prostate Specific Antigen 0.636 ng/mL (0.10-4.00)
== END ==
PROVIDERS: PCP Family Medicine; Visit Provider Family Medicine
DX: E78.5 Hyperlipidemia, unspecified (principal); Z12.5 Encounter for screening for malignant neoplasm of prostate
CPT/HCPCS: 36415; 80053; 80061; 84153; 84443; 85025

== ENCOUNTER 2019-08-18 06:38 | Day surgery (SDC) | payer MEDICARE, SELFPAY ==
[2019-08-18] VITALS (7 sets, daily range): BP systolic 128–185; BP diastolic 60–88; PULSE 52–67; RESP 9–16; TEMP 35.9–36.7; O2SAT 92–96; BMI 28.4
[2019-08-18] MEDS: SODIUM CHLORIDE 0.9% 1,000 ML 200 ML IV (07:39)
--- NOTE | 2019-08-18 07:53 | PM.HP.1 ---
History of Present Illness History of Present Illness Date Patient Seen: 08/18/19 Time Patient Seen: 07:53 Chief complaint: [id number] SCREENING COLONOSCOPY Narrative: Patient presents for colorectal screening. There previous colonoscopy 10 years ago which was normal. No personal or family history of colon cancer. On further history denies any recent gastrointestinal symptoms. No nausea, vomiting, abdominal pain, loss of appetite, unexplained weight loss, change in bowel habits, diarrhea, constipation, melena, hematochezia, or bright red blood per rectum. Patient History Medical History Anxiety (Chronic) Eczema (Chronic) Erectile dysfunction (Chronic) GERD (gastroesophageal reflux disease) (Chronic) Glaucoma (Chronic) Hearing loss (Chronic) Hyperlipidemia (Chronic) Psoriasis (Chronic) Tinnitus (Chronic) Vision disorder (Chronic) Surgical History Anesthesia (Resolved) History of cataract removal with insertion of prosthetic lens (~11/2014) History of temporal artery biopsy (Resolved) Family & Social History Family History Mother Mental health problem Father COPD (chronic obstructive pulmonary disease) Social History: household members significant other,none Tobacco & Substance use: Tobacco type pipe Smoking Status Former smoker alcohol intake never Substance Use Type does not use Meds Home Medications and Allergies Home Medications Medication Instructions Recorded Confirmed Type ASCORBIC ACID (#VITAMIN C) 500 mg PO QDAY #0 11/22/11 05/15/19 History Combigan 100 drp OPHTH DAILY #0 11/22/11 08/18/19 History fzmjdozxfccv-isxm-usspe acid 1 tab PO DAILY #0 11/22/11 08/18/19 History [Multi Complete with Iron] omega 6-aao-aoa-fish oil [Fish Oil] 1 cap PO DAILY #0 11/22/11 08/18/19 History omeprazole magnesium 20 mg 20 mg PO DAILY 01/22/18 08/18/19 History tablet,delayed release sertraline 100 mg tablet 100 mg PO DAILY #90 tab 06/04/18 08/18/19 Rx simvastatin 40 mg tablet 40 mg PO BEDTIME #90 tab 09/05/18 08/18/19 Rx sildenafil 100 mg tablet 100 mg PO PRN #8 tab 02/13/19 08/18/19 Rx methotrexate sodium 2.5 mg tablet See Rx Instructions .ROUTE 07/10/19 08/18/19 Rx .COMPLEX #32 tablet sodium,potassium,mag sulfates 17.5 177 ml PO DAILY #354 ml 08/05/19 08/18/19 Rx gram-3.13 gram-1.6 gram oral soln folic acid 1 mg PO DAILY 08/18/19 08/18/19 History Allergies Allergy/AdvReac Type Severity Reaction Status Date / Time No Known Drug Allergies Allergy Verified 08/18/19 07:25 Review of Systems Review of Systems Narrative: A 10 point review of systems is negative except as noted in the HPI Exam Vital Signs (past 8 hours): - 08/18/19 07:32 Temperature 98.0 F Pulse Rate 60 Respiratory Rate 16 Blood Pressure 185/88 H Pulse Oximetry 96 Oxygen Delivery Method Room Air Narrative Exam Narrative: General-no acute distress, well nourished HEENT-moist mucous membranes, no scleral icterus Neck-supple, no lymphadenopathy Chest- non labored respirations, clear to auscultation bilaterally Cardiac-regular rate no peripheral edema Abdomen-soft, nontender, non distended Extremities-warm, well perfused Neurological-alert and oriented, no focal deficits Assessment & Plan Assessment and plan (1) Screening for colon cancer: Current visit: Yes Status: Acute Assessment & Plan narrative: The patient requires colorectal screening and colonoscopy is recommended. Technical details were discussed. Risks, benefits, alternatives explained. Risks including but not limited to myocardial infarction, aspiration, bleeding, pain, missed lesion, incomplete examination, need for further radiographic studies, colonic perforation, and need for major abdominal surgery were discussed. All questions were answered to their satisfaction, and they are in agreement with this plan.
--- NOTE | 2019-08-18 08:17 | PM.OP.ENDO ---
Operative Date/Time/Diagnoses Date of procedure: 08/18/19 Time of procedure: 08:17 Pre-op diagnosis: Screening colonoscopy Post-op diagnosis: same Procedure & Clinicians Study performed: Colonoscopy Same procedure as scheduled: Yes Indications: Screening colonoscopy Surgeon: Leandro Yañez Procedure Notes SCOAP/Timeout: Performed Procedure in detail: Patient placed in left lateral decubitus position. Time out was performed. Procedural sedation was administered with Versed and Fentanyl. A rectal exam demonstrated no external hemorrhoids no internal masses. Colonoscopy scope was placed into the rectum and advanced through the colon to the cecum. The ileocecal valve was identified. The scope was then slowly withdrawn examining colon thoroughly in all directions. The colonoscopy was notable for the following 1. Sigmoid diverticulosis 2. Grade 2 internal hemorrhoids 3. Quality of prep excellent 4. No masses or polyps Scope withdrawal time: 6 Sedation minutes: 16 Findings: diverticulosis and internal hemorrhoids Specimen(s): none sent Complications: none Impression: Diverticulosis Post-procedure Recommendations: High fiber diet Disposition: same day surgery
[2019-08-18] MEDS: MIDAZOLAM 5 MG/5 ML VIAL IV (08:19)
[2019-08-18] MEDS: fentaNYL 250 MCG/5 ML INJ IV (08:20)
== END 2019-08-18 09:14 | disposition home or self-care (01) ==
PROVIDERS: PCP Family Medicine; Referring Provider Family Medicine; Visit Provider Surgery
PROC: 0DJD8ZZ Inspection of Lower Intestinal Tract, Via Natural or Artificial Opening Endoscopic (ICD-10-PCS; CPT 45378; principal; 2019-08-18 07:45)
DX: Z12.11 Encounter for screening for malignant neoplasm of colon (principal); K57.30 Diverticulosis of large intestine without perforation or abscess without bleeding; K64.1 Second degree hemorrhoids
CPT/HCPCS: G0121; 99152; J2250; J3010

== ENCOUNTER → 2021-02-02 10:09 | Outpatient (CLI) | payer MEDICARE, SELFPAY ==
[2021-02-02 10:53] LABS: Add Manual Diff / Slide Review NO; Basophils Absolute Auto 100 /uL (0-100); Eosinophils Absolute Auto 100 /uL (0-450); Eosinophils Percent Auto 1.5 % (2-4); Hematocrit 40.6 % (41-53); Hemoglobin 13.9 g/dL (13.5-17.5); Lymphocytes Absolute Auto 700 /uL (1100-4500); Lymphocytes Percent Auto 13.6 % (25-40); Mean Corpuscular HGB Conc 34.3 % (30-36); Mean Corpuscular Hemoglobin 32.8 PG (26-34); Mean Corpuscular Volume 95.5 fL (80-100); Monocytes Absolute Auto 400 /uL (0-900); Monocytes Percent Auto 7.5 % (3-14); Neutrophils Absolute Auto 4100 /uL (1500-7000); Neutrophils Percent Auto 76.4 % (50-75); Platelet Count 107 X10^3/uL (150-400); Red Blood Cell Count 4.25 X10^6/uL (4.5-5.9); Red Cell Distribution Width 14.5 % (11.6-14.8); White Blood Cell Count 5.4 X10^3/uL (4.5-11.0)
[2021-02-02 10:55] LABS: Alanine Aminotransferase 23 IU/L (<50); Albumin 3.8 g/dL (3.5-5.0); Albumin Globulin Ratio 1.5 (1.0-2.8); Alkaline Phosphatase 75 U/L (38-126); Aspartate Aminotransferase 30 IU/L (17-59); BUN Creatinine Ratio 25.3 (6-22); Bilirubin Total 0.8 mg/dL (0.2-1.3); Blood Urea Nitrogen 20 mg/dL (9-20); Calcium 8.8 mg/dL (8.4-10.2); Carbon Dioxide 27 mmol/L (22-32); Chloride 110 mmol/L (98-107); Cholesterol 108 mg/dL (140-199); Estimated Glomerular Filt Rate > 60.0 mL/min (>60); Globulin 2.5 g/dL (1.7-4.1); Glucose 100 mg/dL (80-110); HDL Cholesterol 39 mg/dL (40-60); HEMOLYSIS 16 (0-50); LDL Cholesterol Calculated 54 mg/dL (<100); Potassium 4.3 mmol/L (3.4-5.1); Sodium 141 mmol/L (137-145); Total Protein 6.3 g/dL (6.3-8.2); Triglycerides 77 mg/dL (35-150)
[2021-02-02 11:23] LABS: Thyroid Stimulating Hormone 2.08 uIU/mL (0.47-4.68)
== END ==
PROVIDERS: PCP Family Medicine; Referring Provider Family Medicine; Visit Provider Family Medicine
DX: E78.5 Hyperlipidemia, unspecified (principal); F32.9 Major depressive disorder, single episode, unspecified; G25.81 Restless legs syndrome
CPT/HCPCS: 36415; 80053; 80061; 84443; 85025

== ENCOUNTER → 2021-08-24 13:03 | Outpatient (CLI) | payer MEDICARE, SELFPAY ==
[2021-08-24 13:45] LABS: COVID19 -Nasal RAPID POSITIVE (Negative)
== END ==
PROVIDERS: PCP Family Medicine; Visit Provider Physician Assistant
DX: U07.1 COVID-19 (principal); Z20.822 Contact with and (suspected) exposure to COVID-19
CPT/HCPCS: 87635

== ENCOUNTER → 2022-02-02 09:22 | Outpatient (CLI) | payer MEDICARE, SELFPAY ==
[2022-02-02 10:18] LABS: Add Manual Diff / Slide Review NO; Basophils Absolute Auto 0 /uL (0-100); Basophils Percent Auto 1.1 % (0-2); Eosinophils Absolute Auto 100 /uL (0-450); Eosinophils Percent Auto 2.5 % (2-4); Hematocrit 40.6 % (41-53); Hemoglobin 14.3 g/dL (13.5-17.5); Lymphocytes Absolute Auto 600 /uL (1100-4500); Mean Corpuscular HGB Conc 35.3 % (30-36); Mean Corpuscular Hemoglobin 33.1 PG (26-34); Mean Corpuscular Volume 93.9 fL (80-100); Monocytes Absolute Auto 400 /uL (0-900); Monocytes Percent Auto 9.6 % (3-14); Neutrophils Absolute Auto 3200 /uL (1500-7000); Neutrophils Percent Auto 72.8 % (50-75); Platelet Count 116 X10^3/uL (150-400); Red Blood Cell Count 4.32 X10^6/uL (4.5-5.9); Red Cell Distribution Width 14.9 % (11.6-14.8); White Blood Cell Count 4.3 X10^3/uL (4.5-11.0)
[2022-02-02 10:48] LABS: Alanine Aminotransferase 23 IU/L (<50); Albumin 3.8 g/dL (3.5-5.0); Albumin Globulin Ratio 1.5 (1.0-2.8); Alkaline Phosphatase 90 U/L (38-126); Aspartate Aminotransferase 28 IU/L (17-59); BUN Creatinine Ratio 21.5 (6-22); Bilirubin Total 0.9 mg/dL (0.2-1.3); Blood Urea Nitrogen 17 mg/dL (9-20); Calcium 8.5 mg/dL (8.4-10.2); Carbon Dioxide 29 mmol/L (22-32); Chloride 106 mmol/L (98-107); Cholesterol 94 mg/dL (140-199); Estimated Glomerular Filt Rate > 60 mL/min (>60); Globulin 2.6 g/dL (1.7-4.1); Glucose 88 mg/dL (80-110); HDL Cholesterol 29 mg/dL (40-60); HEMOLYSIS 17 (0-50); LDL Cholesterol Calculated 50 mg/dL (<100); Potassium 4.2 mmol/L (3.4-5.1); Sodium 142 mmol/L (137-145); Total Protein 6.4 g/dL (6.3-8.2); Triglycerides 73 mg/dL (35-150)
[2022-02-02 11:18] LABS: Thyroid Stimulating Hormone 2.44 uIU/mL (0.47-4.68)
[2022-02-02 11:56] LABS: Testosterone 520 ng/dL (71.8-623)
[2022-02-02 12:13] LABS: Vitamin B12 647 pg/mL (239-931)
[2022-02-02 12:29] LABS: Folate > 20.0 ng/mL (2.76-20.0)
== END ==
PROVIDERS: Physician Assistant; PCP Family Medicine; Referring Provider Family Medicine; Visit Provider Family Medicine
DX: Z00.00 Encounter for general adult medical examination without abnormal findings (principal); Z13.220 Encounter for screening for lipoid disorders; Z13.9 Encounter for screening, unspecified; F32.A Depression, unspecified; L40.9 Psoriasis, unspecified; R26.81 Unsteadiness on feet; R26.89 Other abnormalities of gait and mobility
CPT/HCPCS: 36415; 80053; 80061; 82607; 82746; 84403; 84443; 85025

== ENCOUNTER → 2022-02-18 09:43 | Outpatient (CLI) | payer MEDICARE, SELFPAY ==
--- NOTE | 2022-02-18 09:46 | DI.CT.S_ITS ---
PROCEDURE: CT HEAD/BRAIN WO CON INDICATIONS: Balance problem TECHNIQUE: Noncontrast 4.5 mm thick angled axial sections acquired from the foramen magnum to the vertex, with coronal and sagittal reformats. For radiation dose reduction, the following was used: automated exposure control, adjustment of mA and/or kV according to patient size. COMPARISON: None. FINDINGS: Image quality: Excellent. CSF spaces: Basal cisterns are patent. No extra-axial fluid collections. The ventricles are symmetric in size and shape. Incidental note of a cavum septum pellucidum et vergae. Brain: No intracranial bleeds or masses. There is cerebral volume loss for age, with resultant ventricular and sulcal prominence. There are periventricular and deep white matter chronic small vessel ischemic changes. There is intracranial internal carotid artery atherosclerosis. Skull and face: Calvarium and visualized facial bones appear intact, without suspicious lesions. Sinuses: Visualized sinuses and mastoids are clear. IMPRESSION: Senescent changes including mild cerebral volume loss and microvascular ischemic changes without evidence of an acute intracranial abnormality. No findings to explain given history. Dictated by: Scott Montesinos D.O. on 02/18/2022 at 9:25 Approved by: Scott Montesinos D.O. on 02/18/2022 at 9:27
== END ==
PROVIDERS: PCP Family Medicine; Referring Provider Physician Assistant; Visit Provider Physician Assistant
DX: R26.89 Other abnormalities of gait and mobility (principal)
CPT/HCPCS: 70450

== ENCOUNTER → 2022-03-07 12:51 | Outpatient (CLI) | payer MEDICARE, SELFPAY ==
--- NOTE | 2022-03-07 12:53 | DI.RAD.S_ITS ---
PROCEDURE: XR TIBIA FIBULA LT 2V INDICATIONS: left leg pain TECHNIQUE: 2 views of the tibia and fibula were acquired. COMPARISON: None. FINDINGS: Bones: No fractures or dislocations. No suspicious bony lesions. Soft tissues: No suspicious soft tissue calcifications or masses. IMPRESSION: No evidence acute bony abnormality of the left tibia and fibula. Dictated by: Rashi Jade M.D. on 03/07/2022 at 13:57 Approved by: Rashi Jade M.D. on 03/07/2022 at 13:58
== END ==
PROVIDERS: PCP Family Medicine; Referring Provider Student in an Organized Health Care Education/Training Program; Visit Provider Student in an Organized Health Care Education/Training Program
DX: M79.605 Pain in left leg (principal)
CPT/HCPCS: 73590

== ENCOUNTER 2023-02-01 12:41 | Emergency (ER) | payer MEDICARE, SELFPAY ==
[2023-02-01 12:45] VITALS: BP 149/70; PULSE 70; RESP 15; TEMP 36.4; O2SAT 96; BMI 29.5
--- NOTE | 2023-02-01 13:09 | ED.FALL ---
HPI - Fall <Barbara Martinez Chiara [facility] - Last Filed: 02/01/23 15:28> General Chief Complaint: Fall Stated Complaint: Back problems Time Seen by Provider: 02/01/23 13:09 Source: patient Mode of arrival: Ambulatory History of Present Illness HPI Narrative: This is an 82-year-old gentleman who presents to the emergency department by private vehicle for injuries he sustained in a fall 5 days ago from a ladder. He is not anticoagulated, denies shortness of breath, chest pain, difficulty breathing but states they sharp pain in the left flank area when he takes a deep breath. He denies hitting his head, denies dizziness, weakness, neck pain, headache, nausea vomiting, changes to his stool urine or stool and states there has been no blood in either. Denies any other symptoms other than his left-sided flank pain and sharp pain when he takes a deep breath or coughs. Patient is ambulatory with an unsteady gait, he states this is new since his fall and is not walking equal legs. He does not have focal weakness when sitting and testing strength. Patient states he fell from the 6th rung on a ladder approximately 6 ft high. He denies hitting his head, denies head or neck pain. Related Data Home Medications Medication Instructions Recorded Confirmed ASCORBIC ACID (#VITAMIN C) 500 mg PO QDAY ##0 11/22/11 10/05/22 brimonidine 0.2 %-timolol 0.5 % 100 drp OPHTH DAILY ##0 11/22/11 10/05/22 eye drops (Combigan) latanoprost 0.005 % eye drops ophthalmic (eye) 09/04/19 10/05/22 timolol 0.5 % eye drops ophthalmic (eye) 09/04/19 10/05/22 Previous Rx's Medication Instructions Recorded tadalafil 5 mg tablet 5 mg PO DAILY PRN sexual activity 03/07/21 #30 tabs tamsulosin 0.4 mg capsule See Rx Instructions .Route 02/06/22 .COMPLEX #30 caps acetaminophen 300 mg-codeine 30 mg 1 tab PO BID PRN pain #20 tabs 07/25/22 tablet sertraline 100 mg tablet 100 mg PO DAILY #90 tabs 10/05/22 folic acid 1 mg tablet See Rx Instructions .Route 10/19/22 .COMPLEX #30 tabs omeprazole 20 mg capsule,delayed See Rx Instructions .Route 10/24/22 release .COMPLEX #90 caps simvastatin 40 mg tablet See Rx Instructions .Route 11/20/22 .COMPLEX #90 tabs methotrexate sodium 2.5 mg tablet See Rx Instructions .Route 12/15/22 .COMPLEX #36 tabs hydrocodone 5 mg-acetaminophen 325 1 tab PO Q6H PRN pain #14 tabs 02/01/23 mg tablet lidocaine 5 % topical patch 1 patch topical DAILY #30 ea 02/01/23 (Lidoderm) Allergies Allergy/AdvReac Type Severity Reaction Status Date / Time No Known Drug Allergies Allergy Verified 02/01/23 12:45 Review of Systems <LUIGI Pompa - Last Filed: 02/01/23 15:28> Review of Systems ROS Unobtainable: All systems reviewed & are unremarkable except as noted in HPI and below Patient History <LUIGI Pompa - Last Filed: 02/01/23 15:28> Medical History Anxiety Eczema Erectile dysfunction GERD (gastroesophageal reflux disease) Glaucoma Hearing loss Hyperlipidemia Lumbar back pain with radiculopathy affecting left lower extremity Psoriasis Screening for colon cancer Tinnitus Vision disorder Surgical History Anesthesia History of cataract removal with insertion of prosthetic lens (~11/2014) History of temporal artery biopsy Family History Mother Mental health problem Father COPD (chronic obstructive pulmonary disease) Social History marital status: household members: significant other and none Smoking Status: Former smoker alcohol intake: never substance use type: does not use Smoking Status: Former smoker Substance Use Type: does not use Exam <LUIGI Pompa - Last Filed: 02/01/23 15:28> Narrative Exam Narrative: Reviewed vitals signs and nursing notes. General: Pleasant, sitting upright, in no acute distress, well groomed, afebrile HEENT: symmetrical facial expressions, moist mucous membranes, neck is supple CV: regular rate and rhythm, warm extremities Respiratory: normal work of breathing, without tachypnea or hypoxia. GI: abdomen soft, nondistended, without CVA tenderness bilaterally, left lower lateral ribs are tender to palpation, abdomen is tender to palpation in this region as well, no bruising to the anterior posterior flank MSK: moves all extremities, no weakness, normal tone, ambulatory with unsteady gait, soft tissue on his left lower back is tender but free of any obvious external abnormalities. There are no symptoms of cauda equina such as saddle anesthesia, and decreased reflexes, decreased sensation or strength. Skin: brisk capillary refill, without rash or wound Neuro: clear speech and normal cognition, A&O x3, GCS 15, no focal motor or sensation deficits Initial Vital Signs Initial Vital Signs: Vital Signs Temperature 97.6 F 02/01/23 12:45 Pulse Rate 70 02/01/23 12:45 Respiratory Rate 15 02/01/23 12:45 Blood Pressure 149/70 H 02/01/23 12:45 Pulse Oximetry 96 02/01/23 12:45 Oxygen Delivery Method Room Air 02/01/23 12:45 <Nalini Lanier MD - Last Filed: 02/01/23 19:41> Initial Vital Signs Initial Vital Signs: Vital Signs Temperature 97.6 F 02/01/23 12:45 Pulse Rate 70 02/01/23 12:45 Respiratory Rate 15 02/01/23 12:45 Blood Pressure 149/70 H 02/01/23 12:45 Pulse Oximetry 96 02/01/23 12:45 Oxygen Delivery Method Room Air 02/01/23 12:45 Course <LUIGI Pompa - Last Filed: 02/01/23 15:28> Orders Ordered: ED Orders 02/01/23 13:14 CT chest abd pel wo con Stat 02/01/23 13:28 CT head/brain wo con Stat Discontinued Medications Hydrocodone Bitart/Acetaminophen (Hydrocodone/Acet 5/325 Tablet) 1 tab PO NOW ONE Stop: 02/01/23 13:20 Last Admin: 02/01/23 13:23 Dose: 1 tab Documented By: NR Lidocaine (Lidocaine Patch 1 Each Adh..Patch) 1 each TOP NOW ONE Stop: 02/01/23 13:20 Last Admin: 02/01/23 13:23 Dose: 1 each Documented By: NR Vital Signs Vital signs: Vital Signs - 8 hr 02/01/23 12:45 Temperature 97.6 F Pulse Rate 70 Respiratory Rate 15 Blood Pressure 149/70 H Pulse Oximetry 96 Oxygen Delivery Method Room Air <Nalini Lanier MD - Last Filed: 02/01/23 19:41> Orders Ordered: ED Orders 02/01/23 13:14 CT chest abd pel wo con Stat 02/01/23 13:28 CT head/brain wo con Stat Discontinued Medications Hydrocodone Bitart/Acetaminophen (Hydrocodone/Acet 5/325 Tablet) 1 tab PO NOW ONE Stop: 02/01/23 13:20 Last Admin: 02/01/23 13:23 Dose: 1 tab Documented By: KAREN Lidocaine (Lidocaine Patch 1 Each Adh..Patch) 1 each TOP NOW ONE Stop: 02/01/23 13:20 Last Admin: 02/01/23 13:23 Dose: 1 each Documented By: KAREN Vital Signs Vital signs: Vital Signs - 8 hr 02/01/23 12:45 Temperature 97.6 F Pulse Rate 70 Respiratory Rate 15 Blood Pressure 149/70 H Pulse Oximetry 96 Oxygen Delivery Method Room Air MDM - Fall <LUIGI Pompa - Last Filed: 02/01/23 15:28> Imaging Data CT scan - abdomen/pelvis: Radiologist's Impression: [place] [address] CT Scan Report Signed Patient: Samir Silva MR#: [id number] : 1940 Acct:[id number] Age/Sex: 82 / M Date of Service: 02/01/23 Loc: ED Accession Number: [id number] ?? Procedure: CT chest abd pel wo con Ordering Provider: Barbara Guadarrama PROCEDURE:? CT CHEST ABD PEL WO CON ? INDICATIONS:? Fall from ladder w/left flank and left lower rib pain 6 days ? TECHNIQUE:? After the administration of oral contrast, 5 mm thick sections acquired from the lung apices to the symphysis pubis.? 5 mm thick coronal and sagittal reformats acquired, with additional 7 mm coronal MIP reformats through the lungs.? For radiation dose reduction, the following was used:? automated exposure control, adjustment of mA and/or kV according to patient size.? ? COMPARISON:? None. ? FINDINGS:? Image quality:? Excellent.? ? CHEST:? Lungs and pleura:? No acute pulmonary opacities.? No pleural effusions or pneumothorax.? 3 mm pulmonary nodule, right upper lobe, image 146/3.? 3 mm pulmonary nodule, right upper lobe, image 144/3.? 3 mm subpleural pulmonary nodule, right lower lobe, image 213/3.? 3 mm anterior basal right lower lobe pulmonary nodule, image 204/3.? 3 mm pulmonary nodule, right lower lobe, image 230/3.? Left apical ground-glass opacity measuring 1 11 mm, image 76/3.? Mild centrilobular emphysema.? Central and peripheral airways are patent are normal in caliber.? ? Mediastinum:? Heart size is normal.? No pericardial effusion.? No mediastinal adenopathy by CT size criteria.? Aneurysmal dilatation of the ascending aorta, measuring 4.4 cm.? Esophagus is normal in caliber.? No hiatal hernia.? ? Chest wall:? No axillary or supraclavicular adenopathy by size criteria.? Thyroid gland contains a very large right thyroid nodule, measuring 5 cm .? ? ? ABDOMEN:? Solid organs:? Liver is normal in size.? Gallbladder contains tiny calcified gallstones/gravel.? No gallbladder wall thickening. .? Pancreas is normal in contours.? Spleen is normal in size.? No adrenal nodules.? Both kidneys are normal in size, without hydronephrosis or nephrolithiasis.? ? Peritoneum and bowel:? Small and large bowel loops are normal in caliber and wall thickness.? No free fluid or air.? Sigmoid diverticulosis without evidence of diverticulitis. ? Nodes and vessels:? No retroperitoneal or mesenteric adenopathy by size criteria.? Aorta and inferior vena cava are normal in size.? ? Miscellaneous:? No ventral hernias.? ? ? PELVIS:? Genitourinary:? Bladder wall thickness is normal.? ? Miscellaneous:? No inguinal hernias or adenopathy.? ? Bones:? Transverse process fractures of left L1, L4-2, L3, and L4.? No displaced rib fractures identified.? Probable bone island, posterior medial left 9th rib.? Nonspecific coarsened reticulations of the inferior wing of the left scapula, nonspecific.? No suspicious bony lesions.? No vertebral body compression fractures.? ? IMPRESSION:? ? 1. There are left transverse process fractures of L1 through L4. ? 2. No displaced left rib fractures. ? 3. No other significant sequelae of acute trauma identified. ? 4. Patient has mild centrilobular emphysema.? Additionally, there is a 11 mm ground-glass opacity in the left apex and multiple 3 mm pulmonary nodules. ? 5. There is a very large right thyroid nodule, measuring 5 cm. ? 6. Thoracic aortic aneurysm measuring 4.4 cm. ? 7. Sigmoid diverticulosis.? ? Comment:? Recommend thyroid ultrasound and ventral probable thyroid FNA.? Recommend six-month follow-up CT to follow-up the ground-glass opacity and the pulmonary nodules.? MDM Narrative Medical decision making narrative: Chief Complaint: Fall from 6 ft Multiple etiologies for patient's complaint considered including, but not limited to: Spinal fracture, intra-abdominal hemorrhage, splenic injury, intracranial hemorrhage, muscle strain, ligamentous sprain I have independently reviewed the patient's vital signs and nursing notes as well as prior records if available. Plan: Patient has left-sided lower lateral rib pain to palpation, abdominal tenderness to palpation, breath sounds are clear and equal bilaterally, will order CT chest abdomen pelvis without contrast for modified trauma. Patient is ambulatory, denies any significant medical history. Course of Care: CT abdomen pelvis is positive for transverse process fractures of L1 through L4 a right-sided thyroid nodule, incidental pulmonary nodules, central lobar emphysema with a ground-glass opacity of the left apex, thoracic aortic aneurysm without rupture and sigmoid diverticulosis without diverticulitis. Consultation with Dr. Mcgraw from Orthopedics regarding fractures who recommends follow-up with PCP as this is nonsurgical, he recommends physical therapy after 3-4 weeks, practicing good posture without any specific mobility restrictions. CT head is negative for acute abnormality, Patient states that the hydrocodone was helpful for his pain, he feels better with lidocaine patch, he was prescribed hydrocodone and lidocaine patches and encouraged to continue with his other pain medications as needed. Social considerations that may affect disposition: none Questions are addressed and there is agreement with the plan and for follow-up. I consulted with the ED attending physician Dr. Lanier as needed for higher level of care considerations and they were available for discussion and recommendations regarding plan of care and diagnostic testing. Patient is appropriate for outpatient management. Discharge Plan Departure Patient Disposition: Home Clinical Impression: Bone island, Incidental lung nodule, Right thyroid nodule Fracture of transverse process of lumbar vertebra Qualifiers: Encounter type: initial encounter Fracture type: closed Qualified Code(s): S32.009A - Unspecified fracture of unspecified lumbar vertebra, initial encounter for closed fracture Fall from ladder Qualifiers: Encounter type: initial encounter Qualified Code(s): W11.XXXA - Fall on and from ladder, initial encounter Emphysema lung Qualifiers: Emphysema type: centrilobular Qualified Code(s): J43.2 - Centrilobular emphysema Aneurysm of thoracic aorta Qualifiers: Thoracic aorta location: unspecified Presence of rupture: without rupture Qualified Code(s): I71.20 - Thoracic aortic aneurysm, without rupture, unspecified Instructions: DI for Thyroid Nodule, Transverse Process Fracture Activity Restrictions/Additional Instructions: *You have been diagnosed with a fall causing fractures of the transverse processes of your lumbar spine 1-4. There are no other acute changes on your scans. Incidentally they found lumps and bumps: They found a nodule on your thyroid gland and some lung nodules. Often these are benign and many of us have them but when we do scans we find them. Please follow-up with your primary care provider regarding these fractures and these nodules. You will likely have an ultrasound of the thyroid gland and if you have ongoing pain related to these fractures, physical therapy may be helpful after 4 weeks. Try to maintaining good posture, they are no mobility restrictions per se, control your pain with lidocaine patches, Tylenol, ibuprofen if you can tolerate it and hydrocodone as needed. I talked to Orthopedics on your behalf and they say there is no indication to follow up within this is a nonsurgical injury and happens at your age likely due to weaker bones. The orthopedist said it will feel much like a sprain and get better over the next few weeks. *What to do: *Please continue to take your regular medications as directed. [x ] New medication prescriptions sent to your pharmacy: [ [facility]] [ ] New medication written as a paper prescription [ ] No new medications given *Please call and schedule follow up with your primary care provider in 2-3 days, at least for an update. Let them know you were seen in the Emergency Department for the above problem. We will electronically transmit a record of today's note if your PCP or specialist is in our system. *If you do not have a primary care provider please contact [phone] to establish care with one of the [facility] primary care providers. *Return to the Emergency Department for worsening symptoms, inability to keep liquids down, fever greater than 101F, chills, or other concerning symptom. Prescriptions: New hydrocodone-acetaminophen 5-325 mg tablet 1 tab PO Q6H PRN (Reason: pain) Qty: 14 0RF lidocaine [Lidoderm] 5 % adhesive patch,medicated 1 patch topical DAILY Qty: 30 0RF Rx Instructions: leave on most painful area for up to 12 hrs No Action latanoprost 0.005 % drops ophthalmic (eye) timolol 0.5 % drops ophthalmic (eye) acetaminophen-codeine 300-30 mg tablet 1 tab PO BID PRN (Reason: pain) Qty: 20 0RF sertraline 100 mg tablet 100 mg PO DAILY Qty: 90 3RF ASCORBIC ACID (#VITAMIN C) 500 mg PO QDAY Qty: 0 Combigan 0.2 %/0.5 % drops 100 drp OPHTH DAILY Qty: 0 tadalafil 5 mg tablet 5 mg PO DAILY PRN (Reason: sexual activity) Qty: 30 3RF Rx Instructions: administer approximately 30min before sexual activity; do not use more than 1 dose per 24 hours tamsulosin 0.4 mg capsule See Rx Instructions .ROUTE .COMPLEX Qty: 30 3RF Dose Instruction: TAKE ONE CAPSULE BY MOUTH ONE TIME DAILY Rx Instructions: TAKE ONE CAPSULE BY MOUTH ONE TIME DAILY folic acid 1 mg tablet See Rx Instructions .ROUTE .COMPLEX Qty: 30 11RF Dose Instruction: TAKE ONE TABLET BY MOUTH ONE TIME DAILY --TAKE 6 DAYS A WEEK-- Rx Instructions: TAKE ONE TABLET BY MOUTH ONE TIME DAILY --TAKE 6 DAYS A WEEK-- omeprazole 20 mg capsule,delayed release(DR/EC) See Rx Instructions .ROUTE .COMPLEX Qty: 90 3RF Dose Instruction: TAKE ONE CAPSULE BY MOUTH ONE TIME DAILY 30 MINUTES PRIOR TO AM MEAL OR AT BEDTIME FOR REFLUX. Rx Instructions: TAKE ONE CAPSULE BY MOUTH ONE TIME DAILY 30 MINUTES PRIOR TO AM MEAL OR AT BEDTIME FOR REFLUX. simvastatin 40 mg tablet See Rx Instructions .ROUTE .COMPLEX Qty: 90 3RF Dose Instruction: TAKE ONE TABLET BY MOUTH NIGHTLY AT BEDTIME Rx Instructions: TAKE ONE TABLET BY MOUTH NIGHTLY AT BEDTIME methotrexate sodium 2.5 mg tablet See Rx Instructions .ROUTE .COMPLEX Qty: 36 5RF Dose Instruction: TAKE SIX TABLETS BY MOUTH EVERY WEEK ON SUNDAY Rx Instructions: TAKE SIX TABLETS BY MOUTH EVERY WEEK ON SUNDAY Referrals: Gabriel Vu MD [Primary Care Provider] - Stand Alone Forms: Patient Portal/API <Nalini Lanier MD - Last Filed: 02/01/23 19:41> Cosign ED Attending Cosignature Attestation: I was immediately available in the department for consultation throughout this patient's visit. Nalini Lanier MD
--- NOTE | 2023-02-01 13:14 | DI.CT.S_ITS ---
PROCEDURE: CT CHEST ABD PEL WO CON INDICATIONS: Fall from ladder w/left flank and left lower rib pain 6 days TECHNIQUE: After the administration of oral contrast, 5 mm thick sections acquired from the lung apices to the symphysis pubis. 5 mm thick coronal and sagittal reformats acquired, with additional 7 mm coronal MIP reformats through the lungs. For radiation dose reduction, the following was used: automated exposure control, adjustment of mA and/or kV according to patient size. COMPARISON: None. FINDINGS: Image quality: Excellent. CHEST: Lungs and pleura: No acute pulmonary opacities. No pleural effusions or pneumothorax. 3 mm pulmonary nodule, right upper lobe, image 146/3. 3 mm pulmonary nodule, right upper lobe, image 144/3. 3 mm subpleural pulmonary nodule, right lower lobe, image 213/3. 3 mm anterior basal right lower lobe pulmonary nodule, image 204/3. 3 mm pulmonary nodule, right lower lobe, image 230/3. Left apical ground-glass opacity measuring 1 11 mm, image 76/3. Mild centrilobular emphysema. Central and peripheral airways are patent are normal in caliber. Mediastinum: Heart size is normal. No pericardial effusion. No mediastinal adenopathy by CT size criteria. Aneurysmal dilatation of the ascending aorta, measuring 4.4 cm. Esophagus is normal in caliber. No hiatal hernia. Chest wall: No axillary or supraclavicular adenopathy by size criteria. Thyroid gland contains a very large right thyroid nodule, measuring 5 cm . ABDOMEN: Solid organs: Liver is normal in size. Gallbladder contains tiny calcified gallstones/gravel. No gallbladder wall thickening. . Pancreas is normal in contours. Spleen is normal in size. No adrenal nodules. Both kidneys are normal in size, without hydronephrosis or nephrolithiasis. Peritoneum and bowel: Small and large bowel loops are normal in caliber and wall thickness. No free fluid or air. Sigmoid diverticulosis without evidence of diverticulitis. Nodes and vessels: No retroperitoneal or mesenteric adenopathy by size criteria. Aorta and inferior vena cava are normal in size. Miscellaneous: No ventral hernias. PELVIS: Genitourinary: Bladder wall thickness is normal. Miscellaneous: No inguinal hernias or adenopathy. Bones: Transverse process fractures of left L1, L4-2, L3, and L4. No displaced rib fractures identified. Probable bone island, posterior medial left 9th rib. Nonspecific coarsened reticulations of the inferior wing of the left scapula, nonspecific. No suspicious bony lesions. No vertebral body compression fractures. IMPRESSION: 1. There are left transverse process fractures of L1 through L4. 2. No displaced left rib fractures. 3. No other significant sequelae of acute trauma identified. 4. Patient has mild centrilobular emphysema. Additionally, there is a 11 mm ground-glass opacity in the left apex and multiple 3 mm pulmonary nodules. 5. There is a very large right thyroid nodule, measuring 5 cm. 6. Thoracic aortic aneurysm measuring 4.4 cm. 7. Sigmoid diverticulosis. Comment: Recommend thyroid ultrasound and ventral probable thyroid FNA. Recommend six-month follow-up CT to follow-up the ground-glass opacity and the pulmonary nodules. Dictated by: Rashi Jade M.D. on 02/01/2023 at 14:22 Approved by: Rashi Jade M.D. on 02/01/2023 at 14:36
[2023-02-01] MEDS: HYDROCODONE/ACET 5/325 TABLET 1 TAB PO (13:23)
[2023-02-01] MEDS: LIDOCAINE PATCH 1 EACH ADH..PATCH TOP (13:23)
--- NOTE | 2023-02-01 13:26 | PC.NURSE ---
pt has marked noticied limp and gait issues. very unsteady on his feet. pt is using wall and other objects to help steady himself as he walks. pt states he did not walk this way prior to his fall, he does not use a cane or walker at home.
--- NOTE | 2023-02-01 13:28 | DI.CT.S_ITS ---
PROCEDURE: CT HEAD/BRAIN WO CON INDICATIONS: Abnormal gait TECHNIQUE: Noncontrast 4.5 mm thick angled axial sections acquired from the foramen magnum to the vertex, with coronal and sagittal reformats. For radiation dose reduction, the following was used: automated exposure control, adjustment of mA and/or kV according to patient size. COMPARISON: [facility], CT, CT HEAD/BRAIN WO CON, 02/18/2022, 9:57. FINDINGS: Image quality: Excellent. CSF spaces: Basal cisterns are patent. No extra-axial fluid collections. The ventricles are symmetric in size and shape. Brain: No intracranial bleeds or masses. There is cerebral volume loss for age, with resultant ventricular and sulcal prominence. There are periventricular and deep white matter chronic small vessel ischemic changes. There is intracranial internal carotid artery atherosclerosis. Skull and face: Calvarium and visualized facial bones appear intact, without suspicious lesions. Sinuses: Visualized sinuses and mastoids are clear. IMPRESSION: 1. No acute intracranial process. 2. Moderate atrophy and chronic microvascular ischemic changes. Dictated by: Rody Riddle M.D. on 02/01/2023 at 14:44 Approved by: Rody Riddle M.D. on 02/01/2023 at 14:45
== END 2023-02-01 15:41 | disposition home or self-care (01) ==
PROVIDERS: Emergency Provider Nurse Practitioner Critical Care Medicine; Family Provider Family Medicine; PCP Family Medicine
DX: S32.009A Unspecified fracture of unspecified lumbar vertebra, initial encounter for closed fracture (principal); J43.2 Centrilobular emphysema; I71.20 Thoracic aortic aneurysm, without rupture, unspecified; J43.9 Emphysema, unspecified; R91.1 Solitary pulmonary nodule; M89.8X9 Other specified disorders of bone, unspecified site; E04.1 Nontoxic single thyroid nodule; W11.XXXA Fall on and from ladder, initial encounter
CPT/HCPCS: 70450; 71250; 74176; 99284

== ENCOUNTER → 2023-08-06 10:48 | Outpatient (CLI) | payer OTHER, SELFPAY ==
--- NOTE | 2023-08-06 10:50 | DI.US.S_ITS ---
PROCEDURE: US THYROID INDICATIONS: 6 month follow up TECHNIQUE: Real-time scanning was performed of the thyroid gland, with image documentation. COMPARISON: None. FINDINGS: Right: Thyroid lobe measures 6.3 x 4.5 x 5.2 cm, and is homogeneous in echotexture. Left: Thyroid lobe measures 3.6 x 1.3 x 1.4 cm, and is homogenous in echotexture. Isthmus: 8 cm thick. Nodule number: 1 Location: Right mid inferior Size: 5.1 x 4.7 x 4.3 cm. Composition: Solid Echogenicity: Hypoechoic Shape: wider than tall. Margins: Smooth Echogenic foci: None Total points: 4 ACR TI-RADS category: 4 Nodule number: 2 Location: Left superior Size: 0.7 x 0.5 x 0.5 cm. Composition: Predominantly solid Echogenicity: Hypoechoic Shape: wider than tall. Margins: Smooth Echogenic foci: None Total points: 4 ACR TI-RADS category: 4 Nodule number: 3 Location: Isthmus Size: 1.8 x 1.3 x 1.3 cm. Composition: Solid Echogenicity: Hypoechoic Shape: wider than tall. Margins: Smooth Echogenic foci: None Total points: 4 ACR TI-RADS category: 4 IMPRESSION: All lesions are considered category 4. Secondary to size, lesions 1 and 3, FNA is recommended. Secondary to size, no additional follow-up is recommended with lesion 2. ACR TI-RADS definitions and recommendations: TI-RADS 1 (benign): 0 points. FNA not needed. TI-RADS 2 (not suspicious): 2 points. FNA not needed. TI-RADS 3 (mildly suspicious): 3 points. * FNA if 2.5 cm or larger, follow up if 1.5 cm or larger (at 1, 3, and 5 years). TI-RADS 4 (moderately suspicious): 4-6 points. * FNA if 1.5 cm or larger, follow up if 1 cm or larger (at 1, 2, 3, and 5 years). TI-RADS 5 (highly suspicious): 7 points or more. * FNA if 1 cm or larger, follow up if 0.5 cm or larger (every year for 5 years). Dictated by: Rody Riddle M.D. on 08/06/2023 at 20:57 Approved by: Rody Riddle M.D. on 08/06/2023 at 20:59
== END ==
PROVIDERS: Family Provider Family Medicine; PCP Family Medicine; Referring Provider Physician Assistant; Visit Provider Physician Assistant
DX: E04.2 Nontoxic multinodular goiter (principal)
CPT/HCPCS: 76536

== ENCOUNTER → 2023-08-09 12:16 | Outpatient (CLI) | payer OTHER, SELFPAY ==
[2023-08-09 13:43] LABS: Add Manual Diff / Slide Review NO; Basophils Absolute Auto 0 /uL (0-100); Basophils Percent Auto 0.9 % (0-2); Eosinophils Absolute Auto 100 /uL (0-450); Eosinophils Percent Auto 1.6 % (2-4); Hemoglobin 15.3 g/dL (13.5-17.5); Lymphocytes Absolute Auto 800 /uL (1100-4500); Mean Corpuscular HGB Conc 34.9 % (30-36); Mean Corpuscular Hemoglobin 33.1 PG (26-34); Mean Corpuscular Volume 94.9 fL (80-100); Monocytes Absolute Auto 600 /uL (0-900); Monocytes Percent Auto 10.7 % (3-14); Neutrophils Absolute Auto 3900 /uL (1500-7000); Neutrophils Percent Auto 71.8 % (50-75); Platelet Count 107 X10^3/uL (150-400); Red Blood Cell Count 4.63 X10^6/uL (4.5-5.9); Red Cell Distribution Width 13.9 % (11.6-14.8); White Blood Cell Count 5.4 X10^3/uL (4.5-11.0)
[2023-08-09 14:11] LABS: Alanine Aminotransferase 17 IU/L (<50); Albumin 3.8 g/dL (3.5-5.0); Albumin Globulin Ratio 1.3 (1.0-2.8); Alkaline Phosphatase 112 U/L (38-126); Aspartate Aminotransferase 23 IU/L (17-59); BUN Creatinine Ratio 25.5 (6-22); Bilirubin Total 0.7 mg/dL (0.2-1.3); Blood Urea Nitrogen 28 mg/dL (9-20); Calcium 8.7 mg/dL (8.4-10.2); Carbon Dioxide 25 mmol/L (22-32); Chloride 108 mmol/L (98-107); Cholesterol 185 mg/dL (140-199); Estimated Glomerular Filt Rate > 60 mL/min (>60); Globulin 2.9 g/dL (1.7-4.1); Glucose 101 mg/dL (80-110); HDL Cholesterol 41 mg/dL (40-60); HEMOLYSIS < 15 (0-50); LDL Cholesterol Calculated 127 mg/dL (<100); Potassium 4.1 mmol/L (3.4-5.1); Sodium 139 mmol/L (137-145); Total Protein 6.7 g/dL (6.3-8.2); Triglycerides 84 mg/dL (35-150)
[2023-08-09 14:40] LABS: TSH w/ Reflex to FT4 1.63 uIU/mL (0.47-4.68)
[2023-08-09 14:57] LABS: Vitamin B12 390 pg/mL (239-931)
== END ==
PROVIDERS: Family Provider Family Medicine; PCP Family Medicine; Referring Provider Physician Assistant; Visit Provider Physician Assistant
DX: E78.5 Hyperlipidemia, unspecified (principal); E04.1 Nontoxic single thyroid nodule; R26.89 Other abnormalities of gait and mobility; I71.20 Thoracic aortic aneurysm, without rupture, unspecified; D72.9 Disorder of white blood cells, unspecified
CPT/HCPCS: 36415; 80053; 80061; 82607; 84443; 85025

== ENCOUNTER → 2023-09-03 11:50 | Outpatient (CLI) | payer OTHER, SELFPAY ==
--- NOTE | 2023-09-03 11:51 | DI.MRI.S_ITS ---
PROCEDURE: MR BRAIN (IAC) WWO CON INDICATIONS: left ear hearing loss and vertigo TECHNIQUE: Noncontrast sagittal T1 spin echo, axial FLAIR, axial gradient echo, axial diffusion and ADC through the brain. Axial thin-slice 3D CISS, coronal TruFISP, axial T1 spin echo with fat saturation through the internal auditory canals. After the administration of contrast, thin slice axial and coronal T1 spin echo with fat saturation through the internal auditory canals, and axial and coronal and sagittal T1 spin echo with fat saturation through the brain. COMPARISON: [facility], CT, CT HEAD/BRAIN WO CON, 02/01/2023, 14:13. FINDINGS: Image quality: Excellent. Cerebellopontine angles: No cerebellopontine angle masses. Inner ear structures appear normally formed. No suspicious enhancement in the internal auditory canal or along the course of the 7th cranial nerve. CSF spaces: Ventricles are normal in size and shape. No extra-axial fluid collections. Basal cisterns are patent. Brain: No intracranial bleeds or mass effects. Candelario-white matter interface is intact. No abnormal intracranial enhancement. Diffusion weighted images demonstrate no acute ischemic insults. Brainstem appears normal. Normal intravascular flow voids are present. Note is made of age-appropriate brain parenchymal volume loss and chronic small vessel ischemic changes. Skull and face: Calvarial marrow signal is normal. Orbits appear normal. Note is made of bilateral lens replacements. Sinuses: Sinuses and mastoids are clear. IMPRESSION: No significant abnormality is seen. Specifically, no masses or abnormal enhancement are seen within the cerebellopontine angle cisterns or within the internal auditory canals. Dictated by: Haile Prieto M.D. on 09/03/2023 at 12:07 Approved by: Haile Prieto M.D. on 09/03/2023 at 12:10
== END ==
LOC: MRI 11:50
PROVIDERS: Family Provider Family Medicine; PCP Family Medicine; Referring Provider Family Medicine; Visit Provider Family Medicine
DX: R42 Dizziness and giddiness (principal); H91.92 Unspecified hearing loss, left ear; R26.89 Other abnormalities of gait and mobility
CPT/HCPCS: 70553; A9579

== ENCOUNTER → 2023-09-11 08:09 | Outpatient (CLI) | payer OTHER, SELFPAY ==
--- NOTE | 2023-09-11 | PATH_ITS ---
Note [facility] Accession Number: [id number] TESTS RESULT FLAG UNITS REF RANGE LAB Clinician Provided Cytology Information No. of containers..02 Previously Prepared Cytology Slide 35 Unknown Storage/container code(s) Source: RIGHT THYROID NODULE #1 DIAGNOSIS: RIGHT THYROID NODULE #1 NEGATIVE FOR MALIGNANT CELLS. BETHESDA CATEGORY II. SPECIMEN CONSISTS OF BENIGN FOLLICULAR CELLS, PRESENT MACROFOLLICLES, WITHOUT SIGNIFICANT CYTOLOGIC ATYPIA. THIS PATTERN IS CONSISTENT WITH A BENIGN FOLLICULAR NODULE. COMMENT: Representive slides of this case are also reviewed by Dr. Brook Antonio who concurs with the given interpretation. Pathologist ICD10: E04.1 Signed out by: Monica Collins MD, Pathologist NPI- [id number] Performed by: Misa Mcneill, [employer] Test Engineer ([facility]) Gross description: 30 CC, RED, CLEAR RECIEVED: IN CYTOLYT WITH 6 ALCOHOL FIXED AND 6 QUICK STAINED SLIDES ALSO 1 RNA VIAL WILL ON 04-27-2025.VO /VDU 09/12/2023 [facility] Local FLAG LEGEND: L-Low Normal,H-High Normal,LL-Alert Low,HH-Alert High <-Panic Low,>-Panic High,A-Abnormal,AA-Critical Abnormal Performed at: 01 =Z [facility] Cytology [address] [place] [address], [place] [address] Tesfaye Luciano MD, Performed at: [address] [place] [address] [facility], [place], [place] [id number] MD Tesfaye Luciano MD Phone: [phone]
--- NOTE | 2023-09-11 08:10 | DI.US.S_ITS ---
PROCEDURE: US FINE NEEDLE ASPIRATION INDICATIONS: RIGHT THYROID NODULE TECHNIQUE: The indications, alternatives, benefits, risks, and complications of the procedure were explained to the patient. Written informed consent was obtained and placed in the chart. The area of interest was examined sonographically and a site was chosen for ultrasound guided percutaneous sampling. The skin was prepared and draped in the usual fashion, and anesthetized with 1% lidocaine infiltrated from the skin down to the lesion. Multiple passes were then performed, with contents emptied into an appropriate pathology specimen container. A bandage was applied to the area of access at completion of the study. Note: The lesion in the isthmus, indicated #3 on prior study was measured and too small for FNA today. COMPARISON: None. FINDINGS: Location(s) of lesion(s) sampled: Nodule # 1 of the lobe right thyroid lower lobe as seen on prior study [place]: 25 gauge hypodermic needles. Number of passes: 6 Medications: 1% lidocaine for local anaesthesia. Complications: None. IMPRESSION: Successful ultrasound-guided right lower lobe thyroid nodule (#1 of prior study) fine needle aspiration, with cytology results pending. Dictated by: Yasmany Carrizales M.D. on 09/12/2023 at 13:53 Approved by: Yasmany Carrizales M.D. on 09/12/2023 at 14:41
== END ==
PROVIDERS: Family Provider Family Medicine; PCP Family Medicine; Referring Provider Physician Assistant; Visit Provider Physician Assistant
DX: E04.1 Nontoxic single thyroid nodule (principal)
CPT/HCPCS: 10005

== ENCOUNTER → 2023-09-29 12:09 | Outpatient (CLI) | payer OTHER, SELFPAY ==
--- NOTE | 2023-09-29 12:10 | DI.CT.S_ITS ---
PROCEDURE: CT CHEST WO CON INDICATIONS: pulmonary nodules TECHNIQUE: Noncontrast 5 mm thick sections acquired from the pulmonary apices to the posterior costophrenic angles. 1 mm lung window, 5 mm thick coronal and sagittal and 7 mm axial MIP reformats were then acquired. For radiation dose reduction, the following was used: automated exposure control, adjustment of mA and/or kV according to patient size. COMPARISON: [facility], CT, CT CHEST ABD PEL WO CON, 02/01/2023, 14:13. [facility], US, US THYROID, 08/06/2023, 11:02. [facility], US, US FINE NEEDLE ASPIRATION, 09/11/2023, 8:18. FINDINGS: Image quality: Diagnostic. Lower Neck: No enlarged lymph nodes. Thyroid: Known right lobe thyroid nodule measuring 5.2 cm, recently sampled under ultrasound guidance. Axillae: No enlarged lymph nodes. Chest Wall: Unremarkable. Bones: Unremarkable. Lungs and Pleura: No pneumothorax or pleural effusions. Pulmonary nodules are as follows (all described on series 3): 1. Left apical ground-glass opacity, stable, current image 53, 1.1 cm. 2. Multiple 3 mm pulmonary nodules are stable. These include right upper lobe, image 118, as well as right upper lobe, image 114, as well as right lower lobe, image 197. Also, left upper lobe, image 187 No new or increasing pulmonary nodules are identified. Heart: Heart size is normal. No pericardial effusion. Thoracic Vessels: Stable 4.4 cm ascending aortic aneurysm. Pulmonary arteries are normal in caliber. Mediastinum and [place]: No enlarged lymph nodes. Esophagus: No wall thickening. No hiatal hernia. Upper Abdomen: Visualized upper abdomen solid organs and bowel loops appear normal. IMPRESSION: 1. Stable 1.1 cm ground-glass opacity, left upper lobe. 2. Multiple tiny pulmonary nodules are also stable. 3. A 5.2 cm right thyroid nodule has recently undergone ultrasound-guided FNA. Recommend correlation with biopsy results and recommendations. Comment: Would recommend further follow-up of the left upper lobe ground-glass opacity in 12 months. If this patient satisfies criteria, would recommend low-dose screening lung CT at that time. Dictated by: Rashi Jade M.D. on 09/30/2023 at 11:00 Approved by: Rashi Jade M.D. on 09/30/2023 at 11:10
== END ==
LOC: CT 12:09
PROVIDERS: Family Provider Family Medicine; PCP Family Medicine; Referring Provider Family Medicine; Visit Provider Family Medicine
DX: I71.40 Abdominal aortic aneurysm, without rupture, unspecified (principal); R91.8 Other nonspecific abnormal finding of lung field; E04.1 Nontoxic single thyroid nodule
CPT/HCPCS: 71250

== ENCOUNTER 2024-06-19 13:59 | Emergency (ER) | payer MEDICARE, SELFPAY ==
[2024-06-19] VITALS (9 sets, daily range): BP systolic 123–147; BP diastolic 67–81; PULSE 72–83; RESP 14–16; TEMP 36.9; O2SAT 92–94; BMI 26.9
--- NOTE | 2024-06-19 14:20 | ED_ITS ---
HPI - General Adult General Chief complaint: Abdominal Pain Stated complaint: abd pain Time Seen by Provider: 06/19/24 14:03 Source: patient Mode of arrival: Ambulatory History of Present Illness HPI narrative: 83-year-old gentleman with a history of balance difficulties, hyperlipidemia, BPH, depression who presents with a month of abdominal pain. Describes it mostly in his upper abdomen and when it is problematic describes it as severe knife-like stabbing pain. He does have episodes with minimal pain. He notes since the pain has started he has had minimal bowel movements but was able to have a bowel movement this morning. It is unclear of the bowel movement has influence his pain. He has had decreased eating, decreased appetite, increased malaise and fatigue thinks that he may have lost weight over the last month. No fevers, cough, chills, chest pain, palpitations. He does note that constipation has never been a particular problem for him Related Data Home Medications Medication Instructions Recorded Confirmed ASCORBIC ACID (#VITAMIN C) 500 mg PO QDAY ##0 11/22/11 08/23/23 brimonidine 0.2 %-timolol 0.5 % 100 drp OPHTH DAILY ##0 11/22/11 08/23/23 eye drops (Combigan) latanoprost 0.005 % eye drops ophthalmic (eye) 09/04/19 08/23/23 timolol 0.5 % eye drops ophthalmic (eye) 09/04/19 08/23/23 risankizumab-rzaa 150 mg/mL 150 mg SUBCUT Q12W 07/24/23 08/23/23 subcutaneous pen injector (Hueyi) Previous Rx's Medication Instructions Recorded tadalafil 5 mg tablet 5 mg PO DAILY PRN sexual activity 03/07/21 #30 tabs tamsulosin 0.4 mg capsule See Rx Instructions .Route 02/06/22 .COMPLEX #30 caps lidocaine 5 % topical patch 1 patch topical DAILY #30 ea 02/01/23 (Lidoderm) sertraline 100 mg tablet 150 mg (1.5 x 100 mg) PO DAILY 07/24/23 #135 tabs simvastatin 40 mg tablet 40 mg PO BEDTIME #100 tabs 01/21/24 acetaminophen 300 mg-codeine 30 mg 1 tab PO BID PRN pain #20 tabs 02/25/24 tablet omeprazole 20 mg capsule,delayed 20 mg PO DAILY for acid reflux #90 02/25/24 release caps folic acid 1 mg tablet 1 mg PO 6XW #30 tabs 03/31/24 meclizine 25 mg tablet 25 mg PO BID PRN dizziness #30 tabs 05/27/24 oxycodone-acetaminophen 5 mg-325 1 tab PO Q6H PRN pain #20 tabs 06/19/24 mg tablet Allergies Allergy/AdvReac Type Severity Reaction Status Date / Time No Known Drug Allergies Allergy Verified 06/19/24 14:17 Review of Systems Review of Systems Narrative: Pertinent positive and negative findings as per HPI Patient History Medical History Thyroid nodule Psoriasis Major depression Hyperlipidemia Screening for colon cancer Lumbar back pain with radiculopathy affecting left lower extremity Vision disorder Erectile dysfunction Hyperlipidemia Anxiety Psoriasis Eczema Tinnitus Hearing loss Glaucoma GERD (gastroesophageal reflux disease) Surgical History Anesthesia History of temporal artery biopsy History of cataract removal with insertion of prosthetic lens (~11/2014) Family History Mother Mental health problem Father COPD (chronic obstructive pulmonary disease) Social History marital status: household members: significant other and none Smoking Status: Former smoker alcohol intake: never substance use type: does not use Smoking Status: Former smoker Exam Initial Vital Signs Initial Vital Signs: Vital Signs Temperature 98.5 F 06/19/24 14:10 Pulse Rate 77 06/19/24 14:10 Respiratory Rate 14 06/19/24 14:10 Blood Pressure 147/81 H 06/19/24 14:10 Pulse Oximetry 94 06/19/24 14:10 Oxygen Delivery Method Room Air 06/19/24 14:10 General: Healthy appearing, in no acute distress. Able to give a complete and coherent history. Well-nourished well-developed HEENT: Moist mucous membranes, normal sclera with reactive pupils, Respiratory: Lungs are clear to auscultation, no wheezing no rales no rhonchi. Full and symmetrical air movement Cardiac: Regular rate and rhythm no murmurs no bruits Abdomen: Soft, no tenderness to palpation at time of my exam, liver edge is palpable concern for increased fullness/firmness throughout the right upper quadrant area. No flank pain Skin: Warm and dry, no rashes Neurologic: Grossly neurologically intact with no obvious asymmetries or abnormalities Extremities: No trauma, well perfused Psych: Cooperative, appropriate insight and affect Course Orders Ordered: ED Orders 06/19/24 14:19 CT abdomen pelvis w con Stat 06/19/24 14:23 Complete Blood Count AUTO DIFF Stat Comprehensive Metabolic Panel Stat Lipase Stat Vital Signs Vital signs: Vital Signs - 8 hr 06/19/24 14:10 06/19/24 14:46 06/19/24 14:48 Temperature 98.5 F Pulse Rate 77 82 83 Respiratory Rate 14 Blood Pressure 147/81 H Pulse Oximetry 94 93 93 Oxygen Delivery Method Room Air Room Air 06/19/24 14:48 Temperature Pulse Rate Respiratory Rate 16 Blood Pressure 123/67 Pulse Oximetry Oxygen Delivery Method Medical Decision Making Lab Data 06/19/24 14:23 06/19/24 14:23 Labs: Lab Results 06/19/24 Range/Units 14:23 WBC 9.1 (4.5-11.0) X10^3/uL RBC 4.65 (4.5-5.9) X10^6/uL Hgb 14.3 (13.5-17.5) g/dL Hct 42.8 (41-53) % MCV 92.1 (80-100) fL MCH 30.7 (26-34) PG MCHC 33.3 (30-36) % RDW 13.5 (11.6-14.8) % Plt Count 170 (150-400) X10^3/uL Neut % (Auto) 85.6 H (50-75) % Lymph % (Auto) 5.7 L (25-40) % Ocean % (Auto) 7.4 (3-14) % Eos % (Auto) 0.5 L (2-4) % Baso % (Auto) 0.8 (0-2) % Neut # (Auto) 7800 H (1247-7005) /uL Lymph # (Auto) 500 L (5118-2317) /uL Ocean # (Auto) 700 (0-900) /uL Eos # (Auto) 0 (0-450) /uL Baso # (Auto) 100 (0-100) /uL Sodium 138 (137-145) mmol/L Potassium 4.4 (3.4-5.1) mmol/L Chloride 107 (98-107) mmol/L Carbon Dioxide 28 (22-32) mmol/L BUN 23 H (9-20) mg/dL Creatinine 1.13 (0.66-1.25) mg/dL Estimated GFR > 60 (>60) mL/min BUN/Creatinine Ratio 20.4 (6-22) Glucose 111 H (80-110) mg/dL Calcium 8.5 (8.4-10.2) mg/dL Total Bilirubin 0.6 (0.2-1.3) mg/dL AST 23 (17-59) IU/L ALT 17 (<50) IU/L Alkaline Phosphatase 122 (38-126) U/L Total Protein 6.4 (6.3-8.2) g/dL Albumin 3.5 (3.5-5.0) g/dL Globulin 2.9 (1.7-4.1) g/dL Albumin/Globulin Ratio 1.2 (1.0-2.8) Lipase 70 (23-300) U/L Imaging Data CT scan - abdomen/pelvis: Radiologist's Impression: PROCEDURE: CT ABDOMEN PELVIS W CON INDICATIONS: abdominal pain TECHNIQUE: After the administration of intravenous contrast, axial sections acquired from the lung bases to the pubic symphysis. Coronal and sagittal reformats were performed. For radiation dose reduction, the following was used: automated exposure control, adjustment of mA and/or kV according to patient size. COMPARISON: [facility], CT, CT CHEST ABD PEL WO CON, 02/01/2023, 14:13. FINDINGS: Image quality: Diagnostic. Lower Chest: No significant findings. ABDOMEN: Liver: No solid mass. No suspicious liver lesions. Gallbladder: Cholelithiasis without wall thickening or adjacent fat stranding to suggest acute cholecystitis. Biliary ducts: No biliary dilation. Pancreas: Ill-defined, hypoattenuating lesion at the tail of the pancreas measuring 2.8 centimeter (series 2, image 68). Cystic lesion in the body/tail of the pancreas measuring 2.0 centimeter. No significant vascular involvement. Spleen: Size is within normal limits. Adrenal Glands: 1.3 centimeter left adrenal nodule (series 2, image 56). Kidneys and Ureters: No hydronephrosis. No solid mass. No complex renal cystic lesion which requires follow up. Stomach and Bowel: Normal colonic caliber, without significant wall thickening. Colonic diverticulosis without evidence of diverticulitis. Peritoneum: Moderate volume ascites, new from prior. There is abnormal fat stranding in the omentum, suggestive of peritoneal carcinomatosis. Ventral Wall: No significant ventral hernia. Abdominal Nodes: No retroperitoneal or mesenteric adenopathy by size criteria. Vessels: Aorta and inferior vena cava are normal in size. PELVIS: Pelvic Organs: Unremarkable. Bladder: No bladder wall thickening, accounting for underdistention. Pelvic Nodes: No enlarged lymph nodes. Miscellaneous: No inguinal hernias are seen. Bones: No aggressive osseous abnormality. IMPRESSION: Ill-defined mass at the pancreatic tail measuring 2.8 centimeters, concerning for pancreatic adenocarcinoma. Additionally, there is new moderate volume ascites and abnormal fat stranding within the omentum, suggestive of peritoneal carcinomatosis. This might be amenable to tissue sampling with endoscopic evaluation. Otherwise, diagnostic paracentesis could be considered under ultrasound guidance. 1.3 centimeter left adrenal nodule, possibly metastatic. No suspicious liver lesions. No significant vascular involvement. Colonic diverticulosis without evidence of diverticulitis. Cholelithiasis without wall thickening or adjacent fat stranding to suggest acute cholecystitis. Dictated by: Jaylen Arias M.D. on 06/19/2024 at 16:11 MDM Narrative Medical decision making narrative: CC: Month abdominal pain, decreased stool output Complicating co-morbidities: Difficulty eating and drinking with increased fatigue and malaise Data collected from: patient, mother Differential considered: Neoplastic process, bowel obstruction, constipation Exam documented above, pertinent findings include: Heart and lungs are benign, abdomen has some tenderness along the liver edge and increased firmness in the right upper quadrant Lab Test results independently reviewed as above. Pertinent findings: CBC is unremarkable Chemistries are reassuring with normal liver studies and lipase Imaging studies independently reviewed: CT scan of the abdomen shows a pancreatic mass in the tail of the pancreas likely a cystic mass near the head of the pancreas, new ascites and probable carcinomatosis. Also mentioned is a 1.3 cm left adrenal mass that is felt to be more likely metastatic rather than primary Consultations: Findings reviewed with on-call provider,Dr Richardson to make sure that he will let Dr. Vu know of the new findings, need for tissue diagnosis and need for rapid follow up in Oncology referrals Discussion: Findings reviewed with the patient and his . Questions are answered. Explained to him that he very likely has pancreatic cancer and likely has spread to the lining of his abdomen in his causing some fluid to collect which is the discomfort that he is experiencing. He has not particularly constipated. We talked about pain control and I am going to give him a prescription for Percocet should he have increasing pain. Did warn him that it could make his gait instability worse and will cause constipation. We discussed the use of MiraLax. Explained to him that the next step is a tissue diagnosis which may be best accomplished with a paracentesis given the ascites appreciated on the CT scan. I did ask the patient to contact Dr. Vu's office tomorrow to see what his next recommendations we will be. Patient is safe for discharge at this time Discharge Plan Departure Patient Disposition: Home Clinical Impression: Mass of pancreas, Peritoneal carcinomatosis, Adrenal mass Instructions: DI for Pancreaticobiliary Cancer Activity Restrictions/Additional Instructions: Thank you for coming in today I am sorry to have to share such bad news. Your CT scan shows a mass in the pancreatic tail that is concerning for a pancreatic cancer. There other findings that are equally concerning with increasing fluid in your abdomen that often is secondary to cancers that have spread to the lining of your abdomen I have talked with Dr. Richardson who was on-call for Dr. Vu this evening. He will make sure that Dr. Vu is aware of these concerning findings 1st thing in the morning. The next step will be to schedule an appointment with the radiologist to collect some fluid from your abdomen so we can actually make a diagnosis and then figure out where you need to go, what options there are and which oncologist is going to be the best fit for you. I would encourage you to also call his office in the morning to see what his recommendations are going to be I have given you a prescription for Percocet. This is Tylenol plus oxycodone. Oxycodone is a narcotic pain medication. If you are having pain that is uncomfortable enough you can certainly use the Percocet. It may make your gait a bit more unsteady and likely will cause constipation. If you do choose to take it make sure that you are taking MiraLax at the same time. You may find that taking MiraLax on a regular basis helps prevent constipation and helps with the bloated feeling from the extra fluid in your belly If you find that you are getting worse or develop any new symptoms, please feel free to return to the emergency department for further evaluation. I wish you the very best Prescriptions: New oxycodone-acetaminophen 5-325 mg tablet 1 tab PO Q6H PRN (Reason: pain) Qty: 20 0RF No Action latanoprost 0.005 % drops ophthalmic (eye) timolol 0.5 % drops ophthalmic (eye) ASCORBIC ACID (#VITAMIN C) 500 mg PO QDAY Qty: 0 Combigan 0.2 %/0.5 % drops 100 drp OPHTH DAILY Qty: 0 tadalafil 5 mg tablet 5 mg PO DAILY PRN (Reason: sexual activity) Qty: 30 3RF Rx Instructions: administer approximately 30min before sexual activity; do not use more than 1 dose per 24 hours tamsulosin 0.4 mg capsule See Rx Instructions .ROUTE .COMPLEX Qty: 30 3RF Dose Instruction: TAKE ONE CAPSULE BY MOUTH ONE TIME DAILY Rx Instructions: TAKE ONE CAPSULE BY MOUTH ONE TIME DAILY simvastatin 40 mg tablet 40 mg PO BEDTIME Qty: 100 3RF omeprazole 20 mg capsule,delayed release(DR/EC) 20 mg PO DAILY Qty: 90 1RF acetaminophen-codeine 300-30 mg tablet 1 tab PO BID PRN (Reason: pain) Qty: 20 0RF folic acid 1 mg tablet 1 mg PO 6XW Qty: 30 11RF meclizine 25 mg tablet 25 mg PO BID PRN (Reason: dizziness) Qty: 30 0RF Skyrizi 150 mg/mL pen injector 150 mg SUBCUT Q12W sertraline 100 mg tablet 150 mg PO DAILY Qty: 135 3RF Rx Instructions: Take 1-1/2 tablets once daily for depression and anxiety during winter months lidocaine [Lidoderm] 5 % adhesive patch,medicated 1 patch topical DAILY Qty: 30 0RF Rx Instructions: leave on most painful area for up to 12 hrs Referrals: Gabriel Vu MD [Primary Care Provider] - Stand Alone Forms: Patient Portal/API/Survey
[2024-06-19 14:29] LABS: Add Manual Diff / Slide Review NO; Basophils Absolute Auto 100 /uL (0-100); Basophils Percent Auto 0.8 % (0-2); Eosinophils Absolute Auto 0 /uL (0-450); Eosinophils Percent Auto 0.5 % (2-4); Hematocrit 42.8 % (41-53); Hemoglobin 14.3 g/dL (13.5-17.5); Lymphocytes Absolute Auto 500 /uL (1100-4500); Lymphocytes Percent Auto 5.7 % (25-40); Mean Corpuscular HGB Conc 33.3 % (30-36); Mean Corpuscular Hemoglobin 30.7 PG (26-34); Mean Corpuscular Volume 92.1 fL (80-100); Monocytes Absolute Auto 700 /uL (0-900); Monocytes Percent Auto 7.4 % (3-14); Neutrophils Absolute Auto 7800 /uL (1500-7000); Neutrophils Percent Auto 85.6 % (50-75); Platelet Count 170 X10^3/uL (150-400); Red Blood Cell Count 4.65 X10^6/uL (4.5-5.9); Red Cell Distribution Width 13.5 % (11.6-14.8); White Blood Cell Count 9.1 X10^3/uL (4.5-11.0)
[2024-06-19 14:47] LABS: Alanine Aminotransferase 17 IU/L (<50); Albumin 3.5 g/dL (3.5-5.0); Albumin Globulin Ratio 1.2 (1.0-2.8); Alkaline Phosphatase 122 U/L (38-126); Aspartate Aminotransferase 23 IU/L (17-59); BUN Creatinine Ratio 20.4 (6-22); Bilirubin Total 0.6 mg/dL (0.2-1.3); Blood Urea Nitrogen 23 mg/dL (9-20); Calcium 8.5 mg/dL (8.4-10.2); Carbon Dioxide 28 mmol/L (22-32); Chloride 107 mmol/L (98-107); Estimated Glomerular Filt Rate > 60 mL/min (>60); Globulin 2.9 g/dL (1.7-4.1); Glucose 111 mg/dL (80-110); HEMOLYSIS < 15 (0-50); Lipase 70 U/L (23-300); Potassium 4.4 mmol/L (3.4-5.1); Sodium 138 mmol/L (137-145); Total Protein 6.4 g/dL (6.3-8.2)
== END 2024-06-19 18:00 | disposition home or self-care (01) ==
PROVIDERS: Emergency Provider Emergency Medicine; Family Provider Family Medicine; PCP Family Medicine
DX: C78.6 Secondary malignant neoplasm of retroperitoneum and peritoneum (principal); K86.89 Other specified diseases of pancreas; E27.8 Other specified disorders of adrenal gland
CPT/HCPCS: 36415; 74177; 80053; 83690; 85025; 99284; Q9967